=== PATIENT | male | born 1970 | race Caucasian/White ===

== ENCOUNTER 2016-11-04 07:15 | Emergency (ER) | payer OTHER ==
[2016-11-04] MEDS ORDERED: TORADOL IM ONE (07:47)
[2016-11-04] MEDS ORDERED: ZOFRAN IV ONE (07:47)
[2016-11-04] MEDS ORDERED: NS 1,000 ML IV ONE (07:47)
[2016-11-04 07:54] LABS: MANUAL DIFF NEEDED? NO
--- NOTE | 2016-11-04 07:55 | PROVIDER DOCUMENTATION ---
HPI-Chest Pain - General Chief Complaint: Flank Pain Stated Complaint: CP/BACK PAIN Time Seen by Provider: 11/04/16 07:45 Source: patient, EMS Unable to obtain history due to:: urgency Allergies/Adverse Reactions: Patient Allergies Allergy/AdvReac Type Severity Reaction Status Date / Time Iodinated Contrast Media - Allergy Unknown Unknown Verified 11/04/16 07:50 Oral and Home Medications: Home Medication List Medication Instructions Recorded Confirmed Last Taken Type Metformin [Glucophage] 1,500 mg PO QPM 12/30/15 09/08/16 09/08/16 19:00 History Carvedilol 12.5 mg PO BID 09/08/16 09/08/16 09/08/16 19:00 History Clonazepam 0.5 mg PO BID 09/08/16 09/08/16 09/08/16 19:00 History Duloxetine HCl 30 mg PO QAM 09/08/16 09/08/16 09/08/16 19:00 History Omeprazole Magnesium 20 mg PO QAM 09/08/16 09/08/16 09/08/16 08:00 History - History of Present Illness-CP Nature of Presenting Problem: Complains of right sided chest pain over the last 3 days. Is a [facility] patient, and says that he is having problems renewing his xanax at the [facility]. Location: reports: substernal Chest Pain Radiation: reports: arms (substernal chest pain radiating to his right arm) Severity in ED: mild Onset/Duration: 3 days ago Timing: still present, intermittent Context/Activities at Onset: reports: light activity Modifying Factors: improves with: other (ran out of his xanax. he is a [facility] patient) Associated Symptoms: reports: shortness of breath Nitro Today/Relief: no nitro taken today Aspirin Treatment Today: no aspirin today Similar Symptoms Previously?: No Recently Seen Here or By Another Healthcare Provider: No Review of Systems - Adult - REVIEW OF SYSTEMS - ADULT Constitutional: reports: no symptoms reported Eyes: reports: no symptoms reported Ears, Nose, Mouth & Throat: reports: no symptoms reported Cardiovascular: reports: see HPI, chest pain Respiratory: reports: no symptoms reported Gastrointestinal: reports: no symptoms reported, see HPI Genitourinary: reports: no symptoms reported, see HPI Musculoskeletal: reports: no symptoms reported, see HPI Integumentary: reports: no symptoms reported, see HPI Neurological: reports: no symptoms reported, see HPI Psychiatric: reports: see HPI Endocrine: reports: no symptoms reported Hematologic/Lymphatic: reports: no symptoms reported Allergic/Immunologic: reports: no symptoms reported All Other Systems: Reviewed and Negative Past History - Adult - PAST MEDICAL HISTORY-ADULT Review of Records: reports: Old Records Reviewed, Nursing Assessment Review, Medications Reviewed, Social history reviewed & non-contributory. Major Childhood Illnesses: reports: denies history Cardiovascular: reports: HTN Respiratory: reports: denies history Gastrointestinal: reports: denies history Obstetrical/Gynecological: reports: denies history Genitourinary: reports: kidney stones Musculoskeletal: reports: denies history Neurological: reports: denies history Psychiatric: reports: depression, suicide attempt Endocrine/Immune: reports: denies history, Diabetes Other Conditions: reports: denies history - PRIOR SURGERIES/PROCEDURES Surgical/Procedure History: reports: other (kidney removed) - IMMUNIZATION STATUS Childhood Immunizations: See Nurse Assessment Flu Vaccine: See Nurse Assessment - FAMILY HISTORY Family History: reviewed, not pertinent Physical Exam-General - PHYSICAL EXAM-ADULT Initial Vital Signs Reviewed: Yes - CONSTITUTIONAL General Appearance: appears well - EYES Eyes: PERRL/EOMI, pink conjunctivae - HEAD, EARS, NOSE, MOUTH & THROAT HENMT: normocephalic/atraumatic, moist mucous membranes, normal ENT inspection - NECK Neck: non-tender, full range of motion - RESPIRATORY Respiratory: chest non-tender, lungs clear, normal breath sounds - CARDIOVASCULAR Cardiovascular: normal peripheral pulses, regular rate, rhythm, no edema - CHEST (BREASTS) Chest/Breast: deferred - GASTROINTESTINAL (ABDOMEN) Abdominal Exam: normal bowel sounds, non tender - GENITOURINARY Female Genitalia/Pelvic Exam: deferred Male Genitalia: deferred Rectal Exam: deferred - LYMPHATIC Lymphatic: no adenopathy - MUSCULOSKELETAL Back Exam: normal inspection, no CVA tenderness, no vertebral tenderness - SKIN Integumentary: normal color, normal turgor, warm/dry - NEUROLOGIC 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 Awaiting labs/imaging.
[2016-11-04 08:00] LABS: BASO% 0.2 % (0.0-0.8); EOS# 0.07 X1000 (0.0-0.7); EOS% 0.6 % (0.0-10.0); HEMATOCRIT 46.4 % (42.0-52.0); HEMOGLOBIN 15.1 g/dL (14.0-18.0); IMM GRAN# 0.04 X1000 (0.0-0.04); IMM GRAN% 0.3 % (0.0-0.5); LYMPH# 1.55 X1000 (1.2-3.4); LYMPH% 12.6 % (20.5-51.1); MCH 29.3 PG (27-31); MCHC 32.5 g/dL (33-37); MCV 90.1 FL (81-99); MONO# 0.94 X1000 (0.11-0.59); MONO% 7.6 % (1.7-9.3); MPV 10.2 FL (7.4-10.4); NEUT% 78.7 % (42.2-75.2); PLT 320 X1000 (130-400); RBC 5.15 XMIL (4.7-6.1)
[2016-11-04 08:17] LABS: AGAP 14; ALKALINE PHOSPHATASE 130 U/L (32-122); AMYLASE 43 U/L (20-200); BUN 13 mg/dL (8-22); CALCIUM 9.7 mg/dL (8.8-10.2); CHLORIDE 91 mmol/L (98-107); COSMO 270; GOT 28 U/L (10-34); GPT 35 U/L (10-44); LIPASE 27 U/L (13-60); POTASSIUM 4.3 mmol/L (3.5-5.1); SODIUM 130 mmol/L (136-145); TCO2 25 mmol/L (25-35); TOTAL BILIRUBIN 0.49 mg/dL (0.20-1.00); TOTAL PROTEIN 8.6 g/dL (6.3-8.3)
[2016-11-04 08:18] LABS: URINE CULTURE NEEDED? NO; URINE MICRO REVIEW NEEDED? NO; URINE SOURCE CLEAN CATCH
[2016-11-04 08:23] LABS: BILIRUBIN URINE NEGATIVE (NEGATIVE); BLOOD URINE TRACE (NEGATIVE); COLOR YELLOW; GLUCOSE URINE >1000 mg/dL (NEGATIVE); LEUKOCYTES URINE NEGATIVE (NEGATIVE); NITRITE URINE NEGATIVE (NEGATIVE); PH URINE 5.5; PROTEIN URINE 100 mg/dL (NEGATIVE); SP GRAVITY URINE 1.022; TURBIDITY URINE CLEAR (CLEAR); UROBILINOGEN URINE NORMAL (NORMAL)
[2016-11-04 08:24] LABS: UR EPITHELIAL CELLS <10 /HPF (<10); URINE BACTERIA NEGATIVE /HPF; URINE RBC <10 /HPF (<10); URINE WBC <10 /HPF (<10)
--- NOTE | 2016-11-04 08:32 | PROVIDER DOCUMENTATION ---
HPI-Male Problem <Jens Ybarra - Last Filed: 11/04/16 09:30> - General Source: patient Unable to obtain history due to:: urgency - History of Present Illness-Male Location of Complaint: reports: left flank Radiation: reports: left flank Quality of Pain: reports: aching, cramping Severity in ED: reports: moderate Onset/Duration: reports: 2 days ago Timing: reports: still present Context/Activities at Onset: reports: light activity Urinary Symptoms: reports: hesitancy, urgency Sexual intercourse history: reports: Not Active Contraception: reports: none Associated Symptoms: reports: none Associated Symptoms: reports: back/neck pain Similar Symptoms Previously?: Yes Recently seen or treated by another doctor?: Yes <Christian Connolly I - Last Filed: 11/04/16 09:35> - General Chief Complaint: Flank Pain Stated Complaint: CP/BACK PAIN Time Seen by Provider: 11/04/16 07:45 Allergies/Adverse Reactions: Patient Allergies Allergy/AdvReac Type Severity Reaction Status Date / Time Iodinated Contrast Media - Allergy Unknown Unknown Verified 11/04/16 07:50 Oral and Home Medications: Home Medication List Medication Instructions Recorded Confirmed Last Taken Type Metformin [Glucophage] 1,500 mg PO QPM 12/30/15 11/04/16 11/04/16 06:30 History Carvedilol 12.5 mg PO BID 09/08/16 11/04/16 11/04/16 06:30 History Omeprazole Magnesium 20 mg PO QAM 09/08/16 11/04/16 11/04/16 06:30 History Hydrocodone/Acetaminophen [[place] 1 each PO PRN PRN 11/04/16 11/04/16 11/04/16 01 :00 History 5-325 Tablet] - History of Present Illness-Male Nature of Presenting Problem: 46 year old complains of left flank pain. History of staghorn calculus, and left nephrectomy. Denies any other complaints. (Christian Connolly I) Review of Systems - Adult - REVIEW OF SYSTEMS - ADULT Constitutional: reports: no symptoms reported Eyes: reports: no symptoms reported Ears, Nose, Mouth & Throat: reports: no symptoms reported Cardiovascular: reports: no symptoms reported Respiratory: reports: no symptoms reported Gastrointestinal: reports: no symptoms reported Genitourinary: reports: see HPI, dysuria, flank pain Musculoskeletal: reports: no symptoms reported Integumentary: reports: no symptoms reported Neurological: reports: no symptoms reported Psychiatric: reports: no symptoms reported Endocrine: reports: no symptoms reported Hematologic/Lymphatic: reports: no symptoms reported Allergic/Immunologic: reports: no symptoms reported All Other Systems: Reviewed and Negative <Christian Connolly I - Last Filed: 11/04/16 09:35> Past History - Adult - PAST MEDICAL HISTORY-ADULT Review of Records: reports: Old Records Reviewed, Nursing Assessment Review, Medications Reviewed, Social history reviewed & non-contributory. Major Childhood Illnesses: reports: denies history Cardiovascular: reports: HTN Respiratory: reports: denies history Gastrointestinal: reports: denies history Obstetrical/Gynecological: reports: denies history Genitourinary: reports: kidney stones Musculoskeletal: reports: denies history Neurological: reports: denies history Psychiatric: reports: depression, suicide attempt Endocrine/Immune: reports: denies history, Diabetes Other Conditions: reports: denies history - PRIOR SURGERIES/PROCEDURES Surgical/Procedure History: reports: other (kidney removed) - IMMUNIZATION STATUS Childhood Immunizations: See Nurse Assessment Flu Vaccine: See Nurse Assessment - FAMILY HISTORY Family History: reviewed, not pertinent <Christian Connolly I - Last Filed: 11/04/16 09:35> Physical Exam-General - PHYSICAL EXAM-ADULT Initial Vital Signs Reviewed: Yes - CONSTITUTIONAL General Appearance: appears well, mild distress - EYES Eyes: PERRL/EOMI, pink conjunctivae, fundi clear, no AV nicking - HEAD, EARS, NOSE, MOUTH & THROAT HENMT: normocephalic/atraumatic, moist mucous membranes, normal ENT inspection - NECK Neck: full range of motion, supple - RESPIRATORY Respiratory: chest non-tender, lungs clear, normal breath sounds - CARDIOVASCULAR Cardiovascular: normal peripheral pulses, regular rate, rhythm, no edema - CHEST (BREASTS) Chest/Breast: deferred - GASTROINTESTINAL (ABDOMEN) Abdominal Exam: normal bowel sounds - GENITOURINARY Male Genitalia: deferred Rectal Exam: deferred - LYMPHATIC Lymphatic: no adenopathy - MUSCULOSKELETAL Back Exam: normal inspection, no CVA tenderness, no vertebral tenderness Extremity: normal range of motion, non-tender, normal gait - SKIN Integumentary: normal color, normal turgor, warm/dry - NEUROLOGIC 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, grossly normal, no motor/sensory deficits - PSYCHIATRIC Psych/Mental Status: normal mood/affect, normal thought content, normal thought process <Christian Connolly I - Last Filed: 11/04/16 09:35> Progress - CT/MRI 1 CT Study: Renal Stone Impression: Abnormal CT Results: no stones, stable left adrenal myelolipoma, gallstones <Jens Ybarra - Last Filed: 11/04/16 09:30> <Christian Connolly I - Last Filed: 11/04/16 09:35> - PLAN OF CARE/RESULTS Progress/Plan/Lab Results: Vital Signs (72 hours) 11/04/16 07:24 Temperature 97.8 F Pulse Rate 98 H Respiratory 20 Rate Blood Pressure 167/103 O2 Sat by Pulse 100 Oximetry Orders Category Date Time Status Saline Loc DIRECTED Care 11/04/16 07:46 Active NPO Diet 11/04/16 07:46 Active RENAL STONE SEARCH [CT] Stat Exams 11/04/16 07:47 Completed AMYLASE [CHEM] Stat Lab 11/04/16 07:45 Completed CBC WITH ELECTRONIC DIFF [HEME] Stat Lab 11/04/16 07:45 Completed COMPREHENSIVE METABOLIC PANEL [CHEM] Stat Lab 11/04/16 07:45 Completed LIPASE [CHEM] Stat Lab 11/04/16 07:45 Completed URINALYSIS W/POSS RFLX CULT [URINALYSIS] Stat Lab 11/04/16 08:08 Completed 0.9% Sodium Chloride Inj [Ns] 1,000 ml Med 11/04/16 07:47 Discontinued IV 999 mls/hr Ketorolac [Toradol] Med 11/04/16 07:47 Discontinued 30 mg IM NOW ONE Ondansetron [Zofran] Med 11/04/16 07:47 Discontinued 4 mg IV NOW ONE pt will be d/c home f/u with urology, pt was clinically stable, rx given Vital Signs Temp Pulse Resp BP Pulse Ox 11/04/16 07:24 97.8 F 98 H 20 167/103 100 Iodinated Contrast Media - Oral and Allergy (Unknown, Verified 11/04/16 07:50) Unknown PT STATES HE HAS NEVER ACTUALLY HAD IVP DYE BUT SEVERAL MEMBERS OF HIS FAMILY ARE ALLERGIC TO IT SO HE DOESNT TAKE IT Metformin [Glucophage] 1,500 mg PO QPM 12/30/15 Carvedilol 12.5 mg PO BID 09/08/16 Omeprazole Magnesium 20 mg PO QAM 09/08/16 Hydrocodone/Acetaminophen [[place] 5-325 Tablet] 1 each PO PRN PRN 11/04/16 Dietary Diet NPO Start ThuNov 04 0746 I&O 11/03/16 11/04/16 11/05/16 06:59 06:59 06:59 Output Total 75 Balance -75 Laboratory 11/04/16 11/04/16 11/04/16 08:08 07:45 07:45 WBC 12.35 H RBC 5.15 Hgb 15.1 Hct 46.4 MCV 90.1 MCH 29.3 MCHC 32.5 L RDW Std Deviation 13.4 Plt Count 320 MPV 10.2 Immature Gran % (Auto) 0.3 Neut % (Auto) 78.7 H Lymph % (Auto) 12.6 L Chambers % (Auto) 7.6 Eos % (Auto) 0.6 Baso % (Auto) 0.2 Immature Gran # (Auto) 0.04 Neut # (Auto) 9.73 H Lymph # (Auto) 1.55 Chambers # (Auto) 0.94 H Eos # (Auto) 0.07 Baso # (Auto) 0.02 Sodium 130 L Potassium 4.3 Chloride 91 L Carbon Dioxide 25 Anion Gap 14 BUN 13 Creatinine 1.0 Estimated GFR/1.73 m2 > 60 BUN/Creatinine Ratio 13 Glucose 261 H Calculated Osmolality 270 Calcium 9.7 Total Bilirubin 0.49 AST 28 ALT 35 Alkaline Phosphatase 130 H Total Protein 8.6 H Albumin 4.0 Globulin 4.6 Albumin/Globulin Ratio 0.9 Amylase 43 Lipase 27 Urine Source CLEAN CATCH Urine Color YELLOW Urine Turbidity CLEAR Urine pH 5.5 Ur Specific [place] 1.022 Urine Protein 100 A Ur Glucose (Stick) >1000 A Ur Ketones (Stick) TRACE A Urine Blood TRACE A Urine Nitrite NEGATIVE Urine Bilirubin NEGATIVE Urobilinogen Dipstick NORMAL Urine Leukocytes NEGATIVE Urine WBC (Auto) <10 Urine RBC (Auto) <10 U Epithel Cells (Auto) <10 Urine Bacteria (Auto) NEGATIVE (Jens Ybarra) Hemodynamically stable. (Christian Connolly I) Departure - Departure Time of Disposition Order: 09:30 Certified Medical Emergency: Emergent <Jens Ybarra - Last Filed: 11/04/16 09:30> - Departure Time of Disposition Order: 09:34 <Christian Connolly I - Last Filed: 11/04/16 09:35> - Departure DIAGNOSIS: Renal colic Uncontrolled diabetes mellitus Qualifiers: Diabetes mellitus type: other specified (including HARINDER) Diabetes mellitus complication status: with other specified complication Diabetes mellitus oil heaterman insulin use: with fpc use Qualified Code(s): E13.69 - Other specified diabetes mellitus with other specified complication Disposition: HOME 01 Condition: Stable Additional Instructions: f//u with urology Push fluids ED Follow Up Instructions: You have been treated by a care provider in the Emergency Department. These instructions are being provided to you so you can have an understanding of how to care for yourself upon discharge. Upon discharge from the Emergency Department, you are responsible for making arrangements for follow-up care by a physician of your choice. Take all prescribed medications as directed. Return to the Emergency Department immediately for any new or worsening symptoms. You may call the Physician Referral phone number at [phone] to obtain a list of Physicians who are taking new patients. Referrals: Polo Lindsey MD [Primary Care Provider] - Jourdan Pepe DO [STAFF PHYSICIAN] - Call for Appoint. 1-2days Instructions: Renal Colic, [id number] Attestation - Scribe Verification/Attestation Scribe:: Jens Ybarra Acting as Scribe for:: Christian Connolly Scribe documention review:: This chart was documented by a scribe and accurately reflects the service the provider performed and the decisions made by the provider. <Jens Ybarra - Last Filed: 11/04/16 09:30> Physician Attestation - Physician Attestation I, the provider, attest to the following statement:: Christian Connolly Physician documentation Attestation:: This documentation recorded by the scribe accurately reflects the service I personally performed and the decisions made by me. <Jens Ybarra - Last Filed: 11/04/16 09:30>
--- NOTE | 2016-11-04 08:56 | Diag Imaging Result Document ---
PROCEDURE NAME: RENAL STONE SEARCH - 11/04/2016 CT RENAL STONE SEARCH WITHOUT CONTRAST: A dose-reduction protocol was used. COMPARISON: Compared with a with contrast CT abdomen and pelvis of 09/08/2016. FINDINGS: The left kidney is surgically absent. There is no evidence of hydronephrosis or perinephric edema on the right. There is no right renal stone identified. There is a primarily fat density left adrenal lesion which is stable and compatible with myelolipoma. There is fatty infiltration of the liver, similar to the previous exam. There are a few small calcified gallstones at the gallbladder neck area similar to the previous exam. The gallbladder is mildly distended but this is stable. There is no pericholecystic inflammation identified. There is no biliary ductal dilatation identified. The pancreas is unremarkable. There is no evidence of bowel obstruction. The appendix has air in the lumen and does not appear inflamed. There is no free air or abscess identified. There are some degenerative changes of the right L4-5 facet noted. IMPRESSION: 1. Status post left nephrectomy. No evidence of right renal stone or hydronephrosis. 2. Stable left adrenal myelolipoma. Stable fatty infiltration of the liver. 3. Small gallstones in gallbladder neck region. Stable mildly distended gallbladder. No pericholecystic inflammation. 4. No bowel obstruction. Unremarkable appendix.
[2016-11-04 10:28] VITALS: BP 131/92
== END 2016-11-04 10:29 | disposition home or self-care (01) ==
LOC: ED 07:15
DX: N23 Unspecified renal colic (principal); E11.65 Type 2 diabetes mellitus with hyperglycemia; D35.02 Benign neoplasm of left adrenal gland; K76.0 Fatty (change of) liver, not elsewhere classified; K80.80 Other cholelithiasis without obstruction; K82.8 Other specified diseases of gallbladder; R10.9 Unspecified abdominal pain; R39.11 Hesitancy of micturition; Z79.899 Other long term (current) drug therapy; R39.15 Urgency of urination; R30.0 Dysuria; M54.9 Dorsalgia, unspecified; R07.9 Chest pain, unspecified; I10 Essential (primary) hypertension; Z90.5 Acquired absence of kidney; Z87.442 Personal history of urinary calculi
CPT/HCPCS: 74176; 80053; 81001; 82150; 83690; 85025; J1885; J2405; J7030

== ENCOUNTER 2016-11-05 11:00 | Inpatient (IN) | payer OTHER ==
[2016-11-05 12:08] LABS: MANUAL DIFF NEEDED? NO
[2016-11-05 12:18] LABS: URINE CULTURE NEEDED? NO; URINE MICRO REVIEW NEEDED? NO; URINE SOURCE CLEAN CATCH
[2016-11-05 12:21] LABS: BILIRUBIN URINE NEGATIVE (NEGATIVE); BLOOD URINE TRACE (NEGATIVE); COLOR YELLOW; GLUCOSE URINE 1000 mg/dL (NEGATIVE); LEUKOCYTES URINE NEGATIVE (NEGATIVE); NITRITE URINE NEGATIVE (NEGATIVE); PROTEIN URINE 70 mg/dL (NEGATIVE); SP GRAVITY URINE 1.011; TURBIDITY URINE CLEAR (CLEAR); UROBILINOGEN URINE NORMAL (NORMAL)
[2016-11-05 12:22] LABS: UR EPITHELIAL CELLS <10 /HPF (<10); URINE BACTERIA NEGATIVE /HPF; URINE RBC <10 /HPF (<10); URINE WBC <10 /HPF (<10)
[2016-11-05 12:23] LABS: BASO% 0.2 % (0.0-0.8); EOS# 0.05 X1000 (0.0-0.7); EOS% 0.3 % (0.0-10.0); HEMATOCRIT 42.1 % (42.0-52.0); HEMOGLOBIN 13.8 g/dL (14.0-18.0); IMM GRAN# 0.05 X1000 (0.0-0.04); IMM GRAN% 0.3 % (0.0-0.5); LYMPH# 2.03 X1000 (1.2-3.4); LYMPH% 11.8 % (20.5-51.1); MCH 29.9 PG (27-31); MCHC 32.8 g/dL (33-37); MCV 91.1 FL (81-99); MONO# 1.98 X1000 (0.11-0.59); MONO% 11.5 % (1.7-9.3); MPV 10.4 FL (7.4-10.4); NEUT% 75.9 % (42.2-75.2); PLT 305 X1000 (130-400); RBC 4.62 XMIL (4.7-6.1)
[2016-11-05 12:25] LABS: INR 1.08; PROTIME 11.5 Seconds (9.2-11.7); PTT 31.6 Seconds (22.0-36.0)
[2016-11-05 12:31] LABS: AGAP 13; ALBUMIN 3.5 g/dL (3.5-5.0); ALKALINE PHOSPHATASE 89 U/L (32-122); BUN 10 mg/dL (8-22); CALCIUM 8.9 mg/dL (8.8-10.2); CHLORIDE 91 mmol/L (98-107); COSMO 269; GOT 20 U/L (10-34); GPT 27 U/L (10-44); POTASSIUM 4.1 mmol/L (3.5-5.1); SODIUM 131 mmol/L (136-145); TCO2 27 mmol/L (25-35); TOTAL BILIRUBIN 0.96 mg/dL (0.20-1.00)
[2016-11-05] MEDS: DILAUDID IV PRN ×2 (12:52→21:24)
[2016-11-05] MEDS: PROTONIX IV SCH (13:09)
[2016-11-05] MEDS: ZOFRAN IV PRN ×2 (13:09→21:24)
[2016-11-05] MEDS: SODIUM CHLORIDE 0.9% INJ SCH (13:09)
[2016-11-05] MEDS: ZOSYN 3.375 GM/NS 50 ML IV SCH ×2 (13:10→21:30)
[2016-11-05] MEDS: NS 1,000 ML IV SCH (13:10)
--- NOTE | 2016-11-05 13:59 | EKG Report ---
Test Performed on : 11/05/2016 12:27:13 PM Test Reason : abd pain Blood Pressure : / mmHG Vent. Rate : 105 BPM Atrial Rate : 105 BPM P-R Int : 158 ms QRS Dur : 092 ms QT Int : 334 ms P-R-T Axes : 052 005 036 degrees QTc Int : 441 ms Sinus tachycardia. Cannot rule out Anterior infarct , age undetermined Abnormal ECG When compared with ECG of 08-SEP-2016 21:46, Minimal criteria for Anterior infarct are now present Confirmed by Brandon NAZARIO, Ezequiel Lockhart ([id number]) on 11/07/2016 5:19:57 PM
[2016-11-05] MEDS ORDERED: TORADOL IV ONE (14:46)
[2016-11-05 16:38] LABS: ALLEN TEST NO; BE 2.8 mmoll (-3.0-3.0); BLOOD TYPE ARTERIAL; DRAW SITE R BRACHIAL; METHB 0.3 % (0.0-1.5); O2(CT) 17.4 mL/dL (15.0-23.0); PCO2(98.6) 40 mmHg (35-45); PO2(98.6) 67 mmHg (60-100); SAMPLE BLOOD; SAO2 96.9 % (95.0-100.0); THB 13.4 g/dL (11.5-17.4); pH(98.6) 7.44 (7.35-7.45)
[2016-11-05 16:40] LABS: MODALITY ROOM AIR
--- NOTE | 2016-11-05 16:59 | CONSULTATION ---
DATE OF CONSULTATION: 11/05/2016 CHIEF COMPLAINT: Right-sided abdominal and back pain. HISTORY OF PRESENT ILLNESS: This is a 46-year-old, obese male who reports a 2-day history of right-sided abdominal and back pain. He first thought it was like a kidney stone. CT shows some sludge or stones in his gallbladder. It has been associated with some nausea. PAST MEDICAL HISTORY: Pertinent for a left nephrectomy for staghorn calculus, history of some diabetes, suicide attempt, and hypertension. MEDICATIONS: At home include metformin 1500 mg p.o. q.p.m., carvedilol 12.5 mg b.i.d., omeprazole 20 mg daily, and Reed 5. ALLERGIES: Iodinated contrast. FAMILY HISTORY: Noncontributory. SOCIAL HISTORY: He has some attentive family. He is a nonsmoker. REVIEW OF SYSTEMS: As noted above. PHYSICAL EXAMINATION: Vital Signs: His temperature is 100.1 degrees, heart rate 109, respiratory rate 20, blood pressure 142/92. Neck: No cervical adenopathy. Lungs: Bilateral breath sounds. Heart: Regular rate rhythm. Abdomen: He is obese. He has some stretch ortiz on his abdomen. He seems to be tender in the right upper quadrant. Extremities: No peripheral edema is present. Neurologic: He is awake and alert. LABORATORY: His white count is 17,000, up from 12,000. His LFTs are normal. CT scan by report shows some sludge or stones in his gallbladder. ASSESSMENT: He is scheduled for a HIDA scan this evening which should prove if his cystic duct is obstructed. If in fact it is obstructed then that would be consistent with acute cholecystitis and he would benefit from a cholecystectomy. I agree with his antibiotic coverage. We will evaluate him again after the HIDA scan. Thanks for the opportunity to see him.
[2016-11-05] MEDS ORDERED: FLUZONE QUAD 2016-2017 SYRINGE IM ONE (17:51)
[2016-11-05] MEDS: HUMALOG SUBQ SCH ×2 (17:52→21:20)
--- NOTE | 2016-11-05 18:54 | HISTORY AND PHYSICAL ---
CHIEF COMPLAINT: Abdominal pain, nausea, vomiting. HISTORY OF PRESENT ILLNESS: Mr. Dimas is a 46-year-old, white gentleman, known case of hypertension, hyperlipidemia, diabetes mellitus, morbid obesity. Had nephrectomy for staghorn calculus on the left side. Not doing well the last 3 days. The patient had pain in the abdomen, more so right upper quadrant flank area, right shoulder blade and shoulder area. The patient took 2 [place] which he had it from previous prescription day before yesterday which did not help his pain. The patient came to the emergency room yesterday. Evaluated by ER physician. The patient had workup done in the ER. His leukocytosis count was minimally elevated. The patient had CT scan of the abdomen and pelvis done which revealed small gallstone in the gallbladder neck region. Stable mildly distended gallbladder. No pericholecystic inflammation. No bowel obstruction. Unremarkable appendix. Patient was given some IV pain medicine, he felt better, the patient was discharged home. After going home, patient continued to have pain which was moderate to severe. The patient vomited 3-4 times. He had fever and chills. The patient was not getting any better. According to mother and patient he was getting more sick. He came to my office for evaluation. The patient had significant tenderness in the right upper quadrant. I was concerned about acute cholecystitis. The patient also has underlying diabetes which is uncontrolled. The patient was getting weaker and I decided to admit the patient for further care. The patient's pain was diffuse right upper quadrant diffuse abdominal pain, pain in the back, shoulder blade area, right shoulder. He denied any dysuria or hematuria. The patient had some diarrhea but no blood or mucus in the stool. No hematemesis. No unusual cough, expectoration, or hemoptysis. Denied any headache. The patient was feeling weak. No typical chest pain, palpitation, orthopnea or PND. The patient was on diet for his uncontrolled diabetes. The patient was refusing insulin. No further history available at this time. ALLERGIES: Iodinated contrast media. PAST MEDICAL HISTORY: Left nephrectomy, diabetes mellitus poorly controlled, hypertension, hyperlipidemia, kidney stone, morbid obesity, sleep apnea, hypogonadism, gastroesophageal reflux disease, status post left nephrectomy. FAMILY HISTORY: Mother with breast cancer, hypertension, hyperlipidemia, NIDDM, mood disorder. Otherwise family history is noncontributory. REVIEW OF SYSTEMS: As per HPI. HOME MEDICATION: Includes Coreg, [place], Glucophage, Prilosec. The patient was on medication for mood disorder, which he stopped taking it. PHYSICAL EXAMINATION: GENERAL: Young, white gentleman morbidly obese in moderate distress due to the pain. VITAL SIGNS: Blood pressure 130/78, pulse 105, respiration 18, temperature 99.2 degrees. SKIN: Normal turgor. No rash or petechiae. HEENT: Head atraumatic, normocephalic. Stewart conjunctivae. Anicteric sclerae. Extraocular muscle movement normal. Fundus sharp discs. Ears and nose benign. NECK: Supple. No JVD, thyromegaly or lymphadenopathy. CHEST: Bilateral good air entry present. Few basal crepitations. No rales. CARDIOVASCULAR: S1 and S2 heard. No gallop or thrill. ABDOMEN: Soft, globular. Bowel sounds present. Significant tenderness right upper quadrant. No guarding or rigidity. Mild diffuse tenderness. No organomegaly or mass. EXTREMITIES: No cyanosis, clubbing. No acute DVT. Patient does have a possible DVT. INTERIOR MECHANIC: Alert, awake, oriented x3. No focalities. LABORATORY DATA: WBC count 17.17, hemoglobin 13.8, hematocrit 42.1, platelet count 305,000. PT/INR 1.08. PTT was 31.6. Blood gas, pH 7.44, pCO2 was 40, PO2 67. This was done on FiO2 of 21%. Sodium was 131, potassium 4.1, chloride 91. BUN was 10. Blood sugar 237. Urinalysis clean- catch was benign. The patient's EKG done today did reveal sinus tachycardia, anteroseptal wall myocardial infarction possible, age undetermined. No acute ST-T wave changes. CONSIDERATION: Patient admitted with abdominal pain, significant tenderness right upper quadrant. There was question about gallstone. First consideration acute cholecystitis. Other consideration includes gastritis, hepatitis. Plan is to admit the patient. His CT scan done yesterday results reviewed. I am going to get HIDA scan. Meanwhile, will do septic workup. Start the patient on IV antibiotics and close observation. Treat his pain and nausea with symptomatically. We will get a surgical consult. Overall plan discussed with the patient and mother and they are in agreement. His other problem includes uncontrolled diabetes mellitus. We will hydrate the patient. Sliding scale insulin. Hypertension, hyperlipidemia, gastritis and reflux disease. Overall plan discussed with the patient and family and they are in agreement.
[2016-11-06] MEDS: ZOSYN 3.375 GM/NS 50 ML IV SCH ×4 (01:35→17:34)
[2016-11-06] MEDS: DILAUDID IV PRN ×4 (03:49→22:10)
[2016-11-06] MEDS: ZOFRAN IV PRN ×3 (03:50→17:41)
[2016-11-06] MEDS: NS 1,000 ML IV SCH (05:33)
[2016-11-06] MEDS: HUMALOG SUBQ SCH ×4 (06:11→22:10)
--- NOTE | 2016-11-06 06:22 | PROGRESS NOTE ---
DATE: 11/06/2016 SUBJECTIVELY: Mr. Dimas is doing fair. He still has some abdominal pain and nausea. The patient had fever up to 100.1. He did not vomit. The patient had a HIDA scan done. I am waiting for official report. No typical chest pain. Patient admitted with abdominal pain, nausea. He did have some vomiting at home. The patient does have uncontrolled diabetes. OBJECTIVE: Vital Signs: His vital signs are noted. Neck: Supple. No JVD. Lungs: Few basal crepitations. Heart: S1 and S2 heard. Abdomen: Soft, globular, obese. The patient still has tenderness in the right upper quadrant though it is minimally less. No guarding or rigidity. Extremities: No cyanosis, clubbing. No acute DVT. PARTY HOST: Alert, awake. Able to move all 4 limbs. CONSIDERATION: 1. Right upper quadrant pain. Most likely, acute cholecystitis. The patient had HIDA scan done. Official result is pending. 2. Uncontrolled diabetes mellitus. 3. Morbid obesity. 4. Mood disorder. I encouraged him to do incentive spirometry. Risk of surgery, anesthesia, postoperative complication discussed with the patient. The patient is on IV antibiotics, IV hydration. Appreciate Dr. Gonzalez's help managing patient.
--- NOTE | 2016-11-06 06:48 | Diag Imaging Result Document ---
PROCEDURE NAME: HIDA SCAN W/O EJECT. FRACTION - 11/05/2016 HIDA SCAN: TECHNIQUE: 5.3 mCi Choletec administered. Imaging for 60 minutes performed. FINDINGS: There is normal uptake of radiopharmaceutical within the liver. There is quick emptying into the small bowel. I believe there is reflux into the stomach. The gallbladder does not fill through 60 minutes. IMPRESSION: Abnormal exam with no filling of the gallbladder through 60 minutes.
[2016-11-06 07:23] LABS: MANUAL DIFF NEEDED? NO
[2016-11-06 07:27] LABS: BASO% 0.1 % (0.0-0.8); EOS# 0.11 X1000 (0.0-0.7); EOS% 0.7 % (0.0-10.0); HEMATOCRIT 39.2 % (42.0-52.0); HEMOGLOBIN 12.7 g/dL (14.0-18.0); IMM GRAN# 0.05 X1000 (0.0-0.04); IMM GRAN% 0.3 % (0.0-0.5); LYMPH# 1.87 X1000 (1.2-3.4); LYMPH% 11.2 % (20.5-51.1); MCHC 32.4 g/dL (33-37); MCV 92.7 FL (81-99); MONO# 1.69 X1000 (0.11-0.59); MONO% 10.1 % (1.7-9.3); NEUT% 77.6 % (42.2-75.2); PLT 277 X1000 (130-400); RBC 4.23 XMIL (4.7-6.1)
[2016-11-06 07:41] LABS: ALBUMIN 2.9 g/dL (3.5-5.0); CALCIUM 8.3 mg/dL (8.8-10.2); MAGNESIUM 1.4 mg/dL (1.5-2.7); POTASSIUM 3.7 mmol/L (3.5-5.1); TOTAL BILIRUBIN 0.67 mg/dL (0.20-1.00); TOTAL PROTEIN 7.5 g/dL (6.3-8.3)
[2016-11-06] MEDS ORDERED: LR 1,000 ML ONE ×2 (11:22→13:47)
[2016-11-06] MEDS ORDERED: MARCAINE 0.25% PF/EPI 1:200,000 ONE (11:22)
[2016-11-06] MEDS ORDERED: SODIUM CHLORIDE 0.9% ONE (11:22)
--- NOTE | 2016-11-06 13:17 | Diag Imaging Result Document ---
PROCEDURE NAME: OPERATIVE CHOLANGIOGRAM - 11/06/2016 INTRAOPERATIVE CHOLANGIOGRAM, 3 VIEWS: FINDINGS: There is contrast in the duodenum. There is a linear filling defect in the distal common bile duct which is probably due to a muscular contraction. There is no evidence of retained stones otherwise. IMPRESSION: No retained stones.
[2016-11-06] MEDS ORDERED: DIPRIVAN 1% ONE (13:33)
--- NOTE | 2016-11-06 13:37 | OPERATIVE NOTE ---
PROCEDURE DATE: 11/06/2016 DATE OF SURGERY: 11/06/2016. PROCEDURE: Laparoscopic cholecystectomy with operative cholangiogram. SURGEON: Joseluis Gonzalez MD. ASSISTANTS: Amaya Mackenzie and Andrews. PREOPERATIVE DIAGNOSIS: Acute cholecystitis. POSTOPERATIVE DIAGNOSIS: Acute and chronic cholecystitis. FINDINGS: The cholangiogram revealed a long cystic duct, but normal size. No intraluminal filling defects. There was free flow in the duodenum. DESCRIPTION OF PROCEDURE: Satisfactory general endotracheal anesthesia was achieved, and the abdomen was prepped and draped in a sterile fashion. We anesthetized the skin above the umbilicus, made an incision, carried our incision down to the fascia. We scored the fascia near the abdominal cavity with Optiview technique. We insufflated through this trocar. Under direct visualization, we introduced an 11 trocar in the midepigastrium. We then introduced a 5 trocar in the midclavicular line, and a 5 trocar near the anterior axillary line. We switched the videolaparoscope to the midepigastric trocar. We identified some adhesions to the anterior abdominal wall which we took down with a grasper, and that gave us free access from the umbilical trocar site into the right upper quadrant. We then placed the patient in reverse Trendelenburg and turned him to the left. The gallbladder was distended, thick-walled and inflamed. We had to sweep the omentum off the fundus. After doing so, we used a large aspirating needle to decompress it. We then used a ratcheted grasper to grasp the fundus and reflect it cephalad. Then again swept the omentum off the fundus into the infundibulum. We then used a bulldog in order to grasp the infundibulum. We then bluntly dissected the triangle, identified what appeared to be the cystic duct. We incised it and then put a Vidal catheter in and shot the cholangiogram. The findings above were noted. We removed the cholangiogram catheter, used a long clipper to clip the cystic duct on the opposite side of cystic ductotomy, and 1 on the proximal side as well. We then divided the cystic duct. We then further dissected the triangle, identified what appeared to be a cystic artery. We clipped it proximally x2 and then divided it with the cautery spatula distally. We then stayed right on the surface of the gallbladder using the cautery spatula to dissect the gallbladder out of the liver bed. We used the electrocautery as well as some blunt dissection with a spatula to dissect the gallbladder up away from the liver bed. We then came to the fundus and the liver of the gallbladder completely. We changed the videolaparoscope to the midepigastric trocar, introduced an EndoCatch, placed the gallbladder within the bag and delivered it through the umbilical trocar site. We had to enlarge the incision to fashion it in order to deliver the gallbladder because it was so enlarged and inflamed. We looked back and irrigated, aspirated, removed all the blood. Did not see any bile leak, but we placed a Baljinder drain into the subhepatic space, bringing it out the mid axillary line trocar site. We put it in the subhepatic space for adequate drainage. We then desufflated, removed our other trocars. We closed the fascia at the umbilicus under direct visualization with 2-0 Polysorb fascial stitches, and also placed 2-0 Polysorb fascial stitch in the epigastrium as well. We then closed the skin at each incision with 4-0 Polysorb subcuticular stitches. A 3-0 nylon was used to secure the drain at the skin level. Sterile OpSite's were applied at the other incisions. He tolerated it well, was sent to the recovery room in satisfactory condition.
[2016-11-06 13:41] LABS: ALLEN TEST YES; BE -2.2 mmoll (-3.0-3.0); BLOOD TYPE ARTERIAL; DRAW SITE R RADIAL; METHB 1.4 % (0.0-1.5); O2(CT) 16.3 mL/dL (15.0-23.0); PCO2(98.6) 41 mmHg (35-45); PO2(98.6) 68 mmHg (60-100); SAMPLE BLOOD; SAO2 95.2 % (95.0-100.0); THB 12.7 g/dL (11.5-17.4); pH(98.6) 7.36 (7.35-7.45)
[2016-11-06 13:43] LABS: MODALITY CANNULA
[2016-11-06] MEDS ORDERED: EXTENSION SET 32 IN 4522 ONE (13:47)
[2016-11-06] MEDS ORDERED: ZOFRAN ONE (13:47)
[2016-11-06] MEDS ORDERED: XYLOCAINE-MPF 2% ONE (13:47)
[2016-11-06] MEDS ORDERED: NORCURON ONE (13:47)
[2016-11-06] MEDS ORDERED: QUELICIN (DOSE) ONE (13:47)
[2016-11-06] MEDS ORDERED: ROBINUL ONE (13:47)
[2016-11-06] MEDS ORDERED: NEOSTIGMINE ONE (13:47)
[2016-11-06] MEDS ORDERED: ANESTHESIA PB SET 88 IN 5742 ONE (13:47)
[2016-11-06] MEDS: DILAUDID ONE ×2 (14:20→14:25)
--- NOTE | 2016-11-06 14:20 | Diag Imaging Result Document ---
PROCEDURE NAME: CHEST-PORTABLE - 11/06/2016 AP PORTABLE CHEST AT 1340 HOURS: FINDINGS: The inspiration is markedly suboptimal. There may be atelectasis in the right middle lobe. IMPRESSION: Poor inspiration.
[2016-11-06] MEDS: PROTONIX IV SCH (17:35)
[2016-11-07] MEDS: DILAUDID IV PRN ×5 (02:53→16:10)
[2016-11-07] MEDS: ZOFRAN IV PRN ×3 (02:53→16:11)
[2016-11-07] MEDS: ZOSYN 3.375 GM/NS 50 ML IV SCH ×4 (04:24→21:53)
[2016-11-07] MEDS: NS 1,000 ML IV SCH ×3 (04:25→14:04)
[2016-11-07] MEDS: HUMALOG SUBQ SCH ×4 (06:39→21:54)
--- NOTE | 2016-11-07 06:56 | PROGRESS NOTE ---
DATE: 11/07/2016 SUBJECTIVE: Mr. Dimas is status post cholecystectomy for acute cholecystitis. Today is postop day 1. The patient tolerated procedure well. The patient did have significant bloody drainage in the TANJA drain and there was some extravasation of blood. The patient did have some problems urinating. No high-grade fever or chills. The patient does have mild cough. No expectoration. No vomiting. No typical chest pain. OBJECTIVE: Vital Signs: His vital signs are noted. Patient is afebrile. At times, tachycardic. Neck: Supple. No JVD. Lungs: Bilateral good air entry present. CVS: S1 and S2 heard. Abdomen: Soft, globular. Mild distention. Soreness. Extremities: No cyanosis, clubbing. No acute DVT. There was bloody drainage in the TANJA drain. STOREKEEPER ENGINEERING: Alert, awake. Able to move all 4 limbs. CONSIDERATION: 1. Acute cholecystitis, status post cholecystectomy. 2. Diabetes mellitus on sliding scale insulin. 3. History of hypertension. 4. Morbid obesity. 5. Gastritis. 6. Mood disorder. PLAN: We will continue current treatment. I am going to repeat blood work today. Close observation. Encourage incentive spirometry. Overall plan discussed with the patient. He is in agreement. The patient is on oxygen. He had history of sleep apnea. Not using CPAP and did not go for followup.
[2016-11-07 07:10] LABS: MANUAL DIFF NEEDED? NO
[2016-11-07 07:27] LABS: BASO% 0.1 % (0.0-0.8); EOS# 0.02 X1000 (0.0-0.7); EOS% 0.1 % (0.0-10.0); HEMATOCRIT 31.1 % (42.0-52.0); IMM GRAN# 0.04 X1000 (0.0-0.04); IMM GRAN% 0.3 % (0.0-0.5); LYMPH# 1.88 X1000 (1.2-3.4); LYMPH% 13.4 % (20.5-51.1); MCHC 32.2 g/dL (33-37); MCV 93.4 FL (81-99); MONO# 1.68 X1000 (0.11-0.59); MPV 9.7 FL (7.4-10.4); NEUT% 74.1 % (42.2-75.2); PLT 288 X1000 (130-400); RBC 3.33 XMIL (4.7-6.1)
[2016-11-07 07:41] LABS: ALBUMIN 2.7 g/dL (3.5-5.0); CALCIUM 7.5 mg/dL (8.8-10.2); MAGNESIUM 1.4 mg/dL (1.5-2.7); POTASSIUM 4.2 mmol/L (3.5-5.1); TOTAL BILIRUBIN 0.56 mg/dL (0.20-1.00); TOTAL PROTEIN 6.8 g/dL (6.3-8.3)
[2016-11-07] MEDS: COREG PO SCH ×2 (09:31→21:53)
[2016-11-07] MEDS: PROTONIX IV SCH (11:50)
[2016-11-07] MEDS: SODIUM CHLORIDE 0.9% INJ SCH (11:50)
[2016-11-08] MEDS: NS 1,000 ML IV SCH ×2 (01:33→20:57)
[2016-11-08] MEDS: DILAUDID IV PRN ×2 (01:33→05:43)
[2016-11-08] MEDS: ZOSYN 3.375 GM/NS 50 ML IV SCH ×4 (04:01→21:30)
[2016-11-08] MEDS: HUMALOG SUBQ SCH ×4 (06:13→20:58)
[2016-11-08 06:33] LABS: MANUAL DIFF NEEDED? NO
[2016-11-08 06:53] LABS: BASO% 0.2 % (0.0-0.8); EOS# 0.22 X1000 (0.0-0.7); EOS% 2.2 % (0.0-10.0); HEMOGLOBIN 8.8 g/dL (14.0-18.0); IMM GRAN# 0.03 X1000 (0.0-0.04); IMM GRAN% 0.3 % (0.0-0.5); LYMPH# 1.88 X1000 (1.2-3.4); LYMPH% 18.8 % (20.5-51.1); MCH 29.6 PG (27-31); MCHC 31.4 g/dL (33-37); MCV 94.3 FL (81-99); MONO# 0.88 X1000 (0.11-0.59); MONO% 8.8 % (1.7-9.3); MPV 9.9 FL (7.4-10.4); NEUT% 69.7 % (42.2-75.2); PLT 286 X1000 (130-400); RBC 2.97 XMIL (4.7-6.1)
[2016-11-08 06:55] LABS: ALBUMIN 2.6 g/dL (3.5-5.0); CALCIUM 7.5 mg/dL (8.8-10.2); MAGNESIUM 1.6 mg/dL (1.5-2.7); POTASSIUM 3.5 mmol/L (3.5-5.1); TOTAL BILIRUBIN 0.31 mg/dL (0.20-1.00); TOTAL PROTEIN 6.4 g/dL (6.3-8.3)
[2016-11-08] MEDS: COREG PO SCH ×2 (09:57→20:58)
--- NOTE | 2016-11-08 10:00 | PROGRESS NOTE ---
DATE: 11/08/2016 SUBJECTIVE: Mr. Dimas is feeling better. He denied any high-grade fever or chills. He does have some soreness in the abdomen and right upper quadrant. The patient does have some bloody drainage from the TANJA drain, and he does have some drainage around the drainage tube when he gets up. Patient feels hungry. No diarrhea. No typical chest pain. Today is postop day 2 for his laparoscopic cholecystectomy. No hypoglycemic episode. Mild cough. No expectoration. OBJECTIVE: Vital Signs: Noted. Neck: Supple. No JVD. Lungs: Bilateral good air entry present. Occasional wheezing. CVS: S1 and S2 heard. Abdomen: Soft, globular. Bowel sounds present. Diffuse abdominal tenderness, more so in the right upper quadrant. Extremities: No cyanosis, clubbing. No acute DVT. SYSTEM SOFTWARE DEVELOPER: Alert, awake able to move all 4 limbs. LAB DATA: His lab data revealed hemoglobin 8.8, hematocrit 28, WBC count 9.98, which is improving. The patient did have drop in hemoglobin and hematocrit. We will continue monitoring. Potassium 3.5, sodium 134, BUN 13 creatinine 1.4. The patient does have only 1 kidney. PATIENT'S PROBLEM LIST: 1. Acute cholecystitis, status post cholecystectomy. 2. Acute blood loss anemia, most likely postoperative. 3. Diabetes mellitus on sliding scale insulin. 4. History of hypertension. Blood pressure doing well without medication. 5. Mood disorder. 6. Gastritis and reflux disease. I am going to advance his diet. 7. Ambulation. Continue intravenous antibiotics. Surgeon following patient with us.
--- NOTE | 2016-11-08 11:43 | PROGRESS NOTE ---
DATE: 11/08/2016 SUBJECTIVE: Mr. Dimas is a 46-year-old white male who underwent a laparoscopic cholecystectomy per Dr. Gonzalez on 11/06/2016. He is now postop day 2. OBJECTIVE: General: He is awake. Still has abdominal distention. His trocar sites are intact. He has a drainage tube in place that has had some bloody drainage. Vital Signs: He is afebrile. His heart rate is 96, blood pressure 116/70, O2 saturation 96%. Lungs: He has no work of breathing. Genitourinary: He is voiding without a Thomas. His urine output is adequate; 800 mL the last shift. He is on IV Zosyn. LABORATORIES: His white blood cell count is normal. His hematocrit is 28%. BUN and creatinine are 13 and 1.4. PLAN: He is on a diabetic soft diet. We will leave his TANJA drain in place today. We will try to increase his activity.
[2016-11-08] MEDS: PROTONIX IV SCH (12:10)
[2016-11-08] MEDS: SODIUM CHLORIDE 0.9% INJ SCH (12:10)
[2016-11-08] MEDS: ADVAIR 250/50 DISKUS INH SCH (19:35)
[2016-11-08] MEDS: GLUCOPHAGE XR PO SCH (20:58)
[2016-11-09] MEDS: ZOSYN 3.375 GM/NS 50 ML IV SCH ×2 (05:41→11:07)
[2016-11-09] MEDS: NS 1,000 ML IV SCH (06:15)
[2016-11-09] MEDS: HUMALOG SUBQ SCH ×4 (06:15→22:03)
[2016-11-09 06:32] LABS: MANUAL DIFF NEEDED? NO
[2016-11-09 06:38] LABS: BASO% 0.4 % (0.0-0.8); EOS# 0.22 X1000 (0.0-0.7); HEMATOCRIT 28.2 % (42.0-52.0); HEMOGLOBIN 8.9 g/dL (14.0-18.0); IMM GRAN# 0.02 X1000 (0.0-0.04); IMM GRAN% 0.3 % (0.0-0.5); LYMPH# 1.85 X1000 (1.2-3.4); LYMPH% 24.9 % (20.5-51.1); MCH 29.9 PG (27-31); MCHC 31.6 g/dL (33-37); MCV 94.6 FL (81-99); MONO# 0.65 X1000 (0.11-0.59); MONO% 8.8 % (1.7-9.3); NEUT% 62.6 % (42.2-75.2); PLT 277 X1000 (130-400); RBC 2.98 XMIL (4.7-6.1)
[2016-11-09 06:58] LABS: AGAP 12; ALBUMIN 2.6 g/dL (3.5-5.0); ALKALINE PHOSPHATASE 70 U/L (32-122); BUN 11 mg/dL (8-22); CALCIUM 8.2 mg/dL (8.8-10.2); CHLORIDE 103 mmol/L (98-107); COSMO 284; GOT 12 U/L (10-34); GPT 20 U/L (10-44); POTASSIUM 3.7 mmol/L (3.5-5.1); SODIUM 141 mmol/L (136-145); TCO2 26 mmol/L (25-35); TOTAL BILIRUBIN 0.23 mg/dL (0.20-1.00); TOTAL PROTEIN 6.7 g/dL (6.3-8.3)
[2016-11-09] MEDS: ADVAIR 250/50 DISKUS INH SCH ×2 (07:56→20:17)
--- NOTE | 2016-11-09 09:48 | PROGRESS NOTE ---
DATE: 11/09/2016 SUBJECTIVE: Mr. Pedraza is doing better. The patient did have 2-3 bowel movements yesterday. His hemoglobin and hematocrit are stable this morning. The patient still has a TANJA drain. He was tolerating food well. No high-grade fever or chills. No nausea or vomiting. Complaining of problems sleeping at night. OBJECTIVE: Vital Signs: Vital signs reviewed. Neck: Supple. No JVD. Lungs: Bibasilar crepitations. Heart: S1 and S2 heard. Abdomen: Soft. Tenderness right upper quadrant, epigastrium. Extremities: No cyanosis, clubbing. No acute DVT. OPTICAL MANAGER: Alert, awake, oriented x3. CONSIDERATIONS: 1. Status post cholecystectomy for acute cholecystitis. 2. Noninsulin-dependent diabetes mellitus. 3. Hypertension. Blood pressure doing well. 4. Insomnia. PLAN: Will try Klonopin. I am going to stop IV fluid. Continue IV antibiotics. Ambulate the patient in room and hallway. Once it is okay with surgeon we will plan discharging patient home. Overall plan discussed with the patient and he is in agreement.
[2016-11-09] MEDS: COREG PO SCH ×2 (11:06→20:38)
[2016-11-09] MEDS: ICAR-C PO SCH (11:13)
[2016-11-09] MEDS ORDERED: NORCO-7.5 PO PRN (11:33)
--- NOTE | 2016-11-09 14:09 | PROGRESS NOTE ---
DATE: 11/09/2016 Mr. Dimas is status post laparoscopic cholecystectomy. He is now postop day 3. This was performed by Dr. Gonzalez. Drain was left at the time of surgery. I removed his drain today. His white blood cell counts been normal the last 2 days. His hematocrit is 28%. All trocar sites seem to be healing well. His abdomen is mostly soft. It is not tender. He is on a diabetic diet. He has been on IV Zosyn but he has lost his IV and so will change his medication to p.o. I think that he is getting close to discharge.
[2016-11-09] MEDS: GLUCOPHAGE XR PO SCH (20:38)
[2016-11-09] MEDS ORDERED: KLONOPIN PO SCH (21:00)
[2016-11-10 05:27] VITALS: BP 134/79
[2016-11-10] MEDS: HUMALOG SUBQ SCH (06:44)
--- NOTE | 2016-11-10 07:06 | PROGRESS NOTE ---
DATE: 11/10/2016 SUBJECTIVE: Mr. Dimas is doing better. Tolerating food well. No nausea or vomiting. Some soreness at the surgery site. No high-grade fever or chills. Ambulating well. OBJECTIVE: Vital Signs: Reviewed. Neck: Supple. No JVD. Lungs: Bibasilar crepitations. Heart: S1 and S2 heard. Abdomen: Soft, globular. Bowel sounds present. Minimal soreness at the surgery site. Extremities: No cyanosis or clubbing. No acute DVT. Central Nervous System: Alert, awake, able to move all 4 limbs. DIAGNOSTIC DATA: The patient's lab data noted. PLAN: The patient is scheduled to have a CBC done today. I am going to review that result. Continue the rest of the treatment. The patient is eager to go home. I will let Dr. Gonzalez evaluate the patient. If okay with him, we will discharge the patient home. Follow up with me in 1 week. He will resume his home medicine. Monitor Accu-Chek. Follow up with me in 7 days. In case of more distress, call us back or go to the emergency room. Follow up with Dr. Gonzalez as scheduled.
[2016-11-10 07:23] LABS: MANUAL DIFF NEEDED? NO
[2016-11-10 07:31] LABS: BASO% 0.4 % (0.0-0.8); EOS% 2.5 % (0.0-10.0); HEMATOCRIT 28.5 % (42.0-52.0); HEMOGLOBIN 8.9 g/dL (14.0-18.0); IMM GRAN# 0.05 X1000 (0.0-0.04); IMM GRAN% 0.6 % (0.0-0.5); LYMPH# 1.85 X1000 (1.2-3.4); MCH 29.6 PG (27-31); MCHC 31.2 g/dL (33-37); MCV 94.7 FL (81-99); MONO# 0.77 X1000 (0.11-0.59); MONO% 9.6 % (1.7-9.3); MPV 10.1 FL (7.4-10.4); NEUT% 63.9 % (42.2-75.2); PLT 325 X1000 (130-400); RBC 3.01 XMIL (4.7-6.1)
[2016-11-10] MEDS: COREG PO SCH (08:24)
[2016-11-10] MEDS: ICAR-C PO SCH (08:24)
[2016-11-10] MEDS: ADVAIR 250/50 DISKUS INH SCH (08:31)
--- NOTE | 2016-11-11 15:59 | DISCHARGE SUMMARY ---
ADMISSION DATE: 11/05/2016 DISCHARGE DATE: 11/10/2016 FINAL DISCHARGE DIAGNOSES: 1. Acute cholecystitis . 2. Hypertension. 3. Uncontrolled diabetes mellitus. 4. Gastritis. 5. Mood disorder. 6. Hyperlipidemia. 7. Acute blood loss anemia. HOSPITAL COURSE: Mr. Dimas is a 46-year-old, white gentleman admitted with abdominal pain, nausea, vomiting, fever, chills. The patient went to the emergency room and had CT scan done. The patient was given some pain medicine. Initial CT scan revealed status post left nephrectomy, small gallstone in the gallbladder neck region, stable mildly distended gallbladder, no pericholecystic inflammation. The patient was discharged home. The patient came back with persistent pain, fever, chills, nausea and vomiting. I evaluated patient in the office. He did have significant tenderness in the right upper quadrant and epigastrium. I decided to admit the patient for further care. We did HIDA scan which was abnormal with no filling of gallbladder through 60 minutes. Surgical consult obtained with Dr. Gonzalez, who did laparoscopic cholecystectomy. The patient did have some postoperative bleeding in the TANJA drain. His hemoglobin and hematocrit remained stable. TANJA drain was removed. According to surgeon, the patient is stable to be discharged. Patient was eager to go home. He remained afebrile. WBC count was normal. He was tolerating food well. I discharged him home on November 10. Advised patient to monitor blood pressure Accu-Chek at home. The patient claims he is not ready to take insulin yet, but I gave him Augmentin and pain medicine. Discussed side effects and precaution. Follow up with me in a week. Follow up with surgeon as scheduled. LAB DATA: Revealed last hemoglobin 8.9, hematocrit 28.5, WBC count 8.6, platelet count 325. Admission WBC count was 16.72. Admission hemoglobin was 12.7. Electrolytes: Sodium 141, potassium 3.7. BUN 11, creatinine 1.2. The patient does have only 1 kidney. He had left nephrectomy. Blood culture was no growth. IMAGING: Chest x-ray results reviewed; it did show poor inspiration. Operative cholangiogram: No retained stone. CONDITION: Overall discharge condition satisfactory. DISCHARGE PLAN: Discussed at length with the patient, and he is in agreement.
== END 2016-11-10 08:50 | disposition home or self-care (01) | DRG 418 ==
LOC: EDIPHOLD 11:30 → 3N 12:44
PROVIDERS: ADMIT Internal Medicine; ATTEND Internal Medicine
PROC: BF101ZZ Fluoroscopy of Bile Ducts using Low Osmolar Contrast (ICD-10-PCS; 2016-11-06)
PROC: 0FT44ZZ Resection of Gallbladder, Percutaneous Endoscopic Approach (ICD-10-PCS; principal; 2016-11-06 11:35)
DX: K81.2 Acute cholecystitis with chronic cholecystitis (principal); D62 Acute posthemorrhagic anemia; E11.65 Type 2 diabetes mellitus with hyperglycemia; I10 Essential (primary) hypertension; E78.5 Hyperlipidemia, unspecified; K29.70 Gastritis, unspecified, without bleeding; K21.9 Gastro-esophageal reflux disease without esophagitis; G47.30 Sleep apnea, unspecified; F39 Unspecified mood [affective] disorder; E66.01 Morbid (severe) obesity due to excess calories; Z90.5 Acquired absence of kidney; Z80.3 Family history of malignant neoplasm of breast; Z82.49 Family history of ischemic heart disease and other diseases of the circulatory system
CPT/HCPCS: 71010; 74176; 74300; 78226; 80053; 81001; 82150; 82805; 82948; 83690; 83735; 84100; 85025; 85610; 85730; 87040; 88304; 93005; 93010; 94761; 94762; 96372; 96374; A9537; C9113; J0330; J1170; J1815; J1885; J2405; J2543; J7030; J7120; Q9966; 94640-76; J2710; S0164

== ENCOUNTER 2017-04-20 14:29 | Observation (INO) ==
[2017-04-20] MEDS ORDERED: D50W SYRINGE IV PRN (16:23)
[2017-04-20 17:00] LABS: ALLEN TEST YES; BE -0.9 mmoll (-3.0-3.0); BLOOD TYPE ARTERIAL; DRAW SITE R RADIAL; METHB 0.9 % (0.0-1.5); O2(CT) 20.1 mL/dL (15.0-23.0); PCO2(98.6) 41 mmHg (35-45); PO2(98.6) 79 mmHg (60-100); SAMPLE BLOOD; THB 15.2 g/dL (11.5-17.4); pH(98.6) 7.38 (7.35-7.45)
[2017-04-20 17:01] LABS: MODALITY ROOM AIR
[2017-04-20 17:03] LABS: MANUAL DIFF NEEDED? NO
[2017-04-20 17:06] LABS: BASO% 0.2 % (0.0-0.8); EOS# 0.14 X1000 (0.0-0.7); EOS% 1.5 % (0.0-10.0); HEMATOCRIT 44.1 % (42.0-52.0); HEMOGLOBIN 14.5 g/dL (14.0-18.0); IMM GRAN# 0.02 X1000 (0.0-0.04); IMM GRAN% 0.2 % (0.0-0.5); LYMPH# 2.56 X1000 (1.2-3.4); LYMPH% 27.1 % (20.5-51.1); MCH 29.7 PG (27-31); MCHC 32.9 g/dL (33-37); MCV 90.4 FL (81-99); MONO# 0.76 X1000 (0.11-0.59); MONO% 8.1 % (1.7-9.3); MPV 10.6 FL (7.4-10.4); NEUT% 62.9 % (42.2-75.2); PLT 315 X1000 (130-400); RBC 4.88 XMIL (4.7-6.1)
[2017-04-20 17:30] LABS: AGAP 15; ALBUMIN 4.2 g/dL (3.5-5.0); ALKALINE PHOSPHATASE 153 U/L (32-122); BUN 14 mg/dL (8-22); CALCIUM 9.4 mg/dL (8.8-10.2); CHLORIDE 95 mmol/L (98-107); CK PROFILE 44 U/L (24-204); COSMO 280; GOT 25 U/L (10-34); GPT 30 U/L (10-44); MAGNESIUM 1.5 mg/dL (1.5-2.7); POTASSIUM 4.2 mmol/L (3.5-5.1); SODIUM 134 mmol/L (136-145); TCO2 24 mmol/L (25-35); TOTAL BILIRUBIN 0.28 mg/dL (0.20-1.00); TOTAL PROTEIN 8.2 g/dL (6.3-8.3)
[2017-04-20] MEDS ORDERED: ROCEPHIN 1 GM/NS 1 GM/50 ML IVPB IV SCH (17:30)
--- NOTE | 2017-04-20 17:54 | HISTORY AND PHYSICAL ---
CHIEF COMPLAINT: Right-sided headache. HISTORY OF PRESENT ILLNESS: A 47-year-old, white gentleman complaining of headaches going on since last Thursday. It was a mild headache but getting worse. The headache is persistent, moderate to severe in intensity. The patient did have some blurred vision, pressure on the right maxillary sinuses, complaining of nausea. The patient did take some Tylenol without significant relief. The patient claims his blood pressure was staying high. The patient had an episode in the past with a similar type of headache where he lost his memory that required he go for rehabilitation. Patient was concerned. He came in for evaluation and I decided to admit the patient for observation. The patient denied any mental confusion. No neck stiffness. The patient did have malaise. No high-grade fever. He did have some chills. No sinus drainage. No history of head injury. Headache at times is throbbing in nature. No earache. No sore throat. In my office his O2 saturation was low. Patient was tachycardic which could be due to the pain. No typical chest pain, palpitations, orthopnea or PND. Patient does have a history of weight gain. He does have polyuria and polydipsia. No heat or cold intolerance. No diarrhea, blood or mucus in the stool. The patient recently was found to have a ventral hernia. Mild cough. No expectoration or hemoptysis. No dysphagia or odynophagia. No focal weakness. The patient was complaining of weakness all over. ALLERGIES: Iodinated contrast both oral and IV. HOME MEDICATIONS: Cozaar, Prilosec. The patient does not have an updated list. He is going to bring it soon. PAST MEDICAL HISTORY: Patient has only 1 kidney. He had a nephrectomy on the other side, NIDDM, hypertension, morbid obesity, sleep apnea, bipolar disorder, gastritis and reflux disease, hernia, hyperlipidemia. PERSONAL HISTORY: Single. Nonsmoker. Denied alcohol or substance abuse. Patient and mother lives in the same house. REVIEW OF SYSTEMS: As per HPI. Otherwise unobtainable. FAMILY HISTORY: Significant for mother with COPD, hypertension, NIDDM, breast cancer. PAST SURGICAL HISTORY: Patient had cholecystectomy and left nephrectomy. PHYSICAL EXAMINATION: GENERAL: Middle-aged white gentleman, in mild distress. VITAL SIGNS: Blood pressure 130/80, pulse 123, respirations 20, temperature 98.7 degrees. SKIN: Normal turgor. No rash or petechiae. HEENT: Head atraumatic, normocephalic. [place] conjunctivae. Anicteric sclerae. Extraocular muscle movements normal. Fundus cannot be penetrated. Good oral hygiene. No tonsillopharyngeal congestion or exudate. Ears and nose benign. NECK: Supple. No JVD, thyromegaly or lymphadenopathy. CHEST: Bilateral good air entry present. Bibasilar crepitations. No rales. CARDIOVASCULAR: S1 and S2 heard. No gallop or thrill. ABDOMEN: Soft, globular. Bowel sounds present. Patient does have a ventral hernia most likely incisional. EXTREMITIES: No cyanosis or clubbing. No acute DVT. CENTRAL NERVOUS SYSTEM: Alert, awake. Able to move all 4 limbs. Patient does have tenderness on right maxillary sinus. No neck stiffness. No signs of meningeal irritation. CONSIDERATION: 1. Headache moderate to severe with some blurry vision. 2. Tachycardia. The patient did have a low O2 saturation in my office. I decided to admit the patient for observation. 3. Morbid obesity. 4. Hypertension. 5. Ventral hernia. 6. Diabetes mellitus. 7. Gastritis and reflux disease. PLAN: 1. Admit patient. Monitor Accu-Chek, oxygen, telemetry monitoring. Appropriate workup including CT scan of the sinuses and brain, neurology checks, telemetry monitoring. We started patient on beta-charlee. Overall plan discussed at length with the patient. We will treat his headaches symptomatically. 2. Lab Data: Hemoglobin 14.5, hematocrit 44.1, WBC count 9.44, platelet count 315. Blood gas: pH 7.38, pCO2 41, PO2 was 79. This was done on room air. I am going to get blood culture done. 3. Overall plan discussed at length with the patient and he is in agreement. cc: Polo Lindsey MD
[2017-04-20 18:10] LABS: SED RATE 26 mm/hr (0-15)
--- NOTE | 2017-04-20 18:36 | Diag Imaging Result Doc PS360 ---
HEAD W/O CONTRAST - 04/20/2017 INDICATION: headache TECHNIQUE: A CT dose reduction protocol was used. COMPARISON: None FINDINGS: The ventricles and sulci are normal in size and contour. No intracranial mass or hemorrhage. The skull is intact. The sinuses mastoids and middle ears are clear. IMPRESSION: Negative exam. Electronically signed by Kip Freeman 04/20/2017 6:33 PM
--- NOTE | 2017-04-20 18:43 | Diag Imaging Result Doc PS360 ---
PARANASAL SINUSES - 04/20/2017 INDICATION: headache TECHNIQUE: A CT dose reduction protocol was used. COMPARISON: None FINDINGS: The paranasal sinuses are normally developed and clear. Mastoid air cells are clear as well. IMPRESSION: Negative exam. Electronically signed by Kip Freeman 04/20/2017 6:41 PM
[2017-04-20] MEDS: NS + KCL 20 MEQ 1,000 ML IV SCH (18:48)
[2017-04-20] MEDS: NORCO-7.5 PO PRN (18:50)
[2017-04-20] MEDS: LOPRESSOR PO SCH ×2 (18:51→20:15)
--- NOTE | 2017-04-20 18:54 | Diag Imaging Result Doc PS360 ---
CHEST-2 VIEWS - 04/20/2017 INDICATION: headache TECHNIQUE: COMPARISON: 11/06/2016 FINDINGS: The lungs are normally expanded and clear. Heart size and mediastinal contours are normal. No pneumothorax or pleural effusion. IMPRESSION: Negative exam. Electronically signed by Kip Freeman 04/20/2017 6:51 PM
[2017-04-20] MEDS: HUMALOG SUBQ SCH (21:04)
[2017-04-21] MEDS: NORCO-7.5 PO PRN (00:53)
--- NOTE | 2017-04-21 05:38 | EKG Report ---
Test Performed on : 04/20/2017 6:13:46 PM Test Reason : headache Blood Pressure : / mmHG Vent. Rate : 117 BPM Atrial Rate : 117 BPM P-R Int : 148 ms QRS Dur : 084 ms QT Int : 322 ms P-R-T Axes : 054 023 042 degrees QTc Int : 449 ms Sinus tachycardia. Otherwise normal ECG When compared with ECG of 05-NOV-2016 12:27, No significant change was found Confirmed by Wade Ravi DO ([id number]) on 04/25/2017 3:11:35 PM
[2017-04-21] MEDS: HUMALOG SUBQ SCH (06:03)
[2017-04-21] MEDS: NS + KCL 20 MEQ 1,000 ML IV SCH (06:03)
--- NOTE | 2017-04-21 07:03 | PROGRESS NOTE ---
DATE: 04/21/2017 SUBJECTIVE: Mr. Dimas is feeling better. His headache is less. No nausea or vomiting. The patient still has some blurred vision. No chest pain. No neck stiffness. CT scan of the brain and sinuses reviewed. Sedimentation rate was normal. Lab data noted. OBJECTIVE: Vital Signs: Reviewed. Heart rate improved, blood pressure was satisfactory. Neck: Supple. No JVD. Lungs: Bilateral good air entry present. CVS: S1 and S2 heard. Abdomen: Soft, nontender. Bowel sounds present. The patient does have ventral hernia. PANTOGRAPH ENGRAVER: Alert, awake, able to move all 4 limbs. LABORATORY DATA: Sedimentation rate was 26. Blood gas results reviewed. Blood culture results are pending. ASSESSMENT AND PLAN: Overall, the patient is doing better. I am planning to discharge the patient home today to see arson investigator or inspector dials as soon as possible to make sure no eye problem causing headache. I am going to start him on small dose of beta charlee. Advised him to continue home medicine. I gave him antibiotics, [place] for pain, Toprol-XL. Follow up with me in a week. In case of more distress, call us back or go to emergency room. Advised to monitor blood pressure, Accu-Chek at home. Continue home medicine. Continue followup with psychiatrist as scheduled. In case of more problems, call us back or go to emergency room. cc: Polo Lindsey MD
[2017-04-21] MEDS ORDERED: LANTUS SUBQ ONE (07:30)
[2017-04-21 07:38] VITALS: BP 136/97
[2017-04-21] MEDS ORDERED: INSULIN PEN NEEDLES ONE (08:35)
[2017-04-21] MEDS ORDERED: TOPROL XL PO SCH ×2 (09:00)
== END 2017-04-21 10:18 | disposition home or self-care (01) ==
LOC: DIRADM → 3N 16:07
PROVIDERS: ADMIT Internal Medicine; ATTEND Internal Medicine

== ENCOUNTER 2017-05-26 16:06 | Inpatient (IN) ==
[2017-05-26] MEDS ORDERED: DILAUDID IV PRN (17:34)
--- NOTE | 2017-05-26 17:45 | Diag Imaging Result Doc PS360 ---
EXAM: CHEST-2 VIEWS HISTORY: headache TECHNIQUE: Two views COMPARISON: 04/20/2017 FINDINGS: The lungs are well expanded. The heart is not enlarged. The vessels are not distended. There are no infiltrates. No pleural effusions. IMPRESSION: No acute abnormality. Electronically signed by Selvin Manuel 05/26/2017 5:43 PM
--- NOTE | 2017-05-26 18:18 | Diag Imaging Result Doc PS360 ---
EXAM: CT HEAD W/O CONTRAST HISTORY: Headache TECHNIQUE: CT brain without. Dose reduction protocol. COMPARISON: 04/20/2017 FINDINGS: No parenchymal hemorrhage. No epidural or subdural hematoma. No subarachnoid hemorrhage. No mass identified on this noncontrasted exam. No hydrocephalus. Questionable minimal microvascular ischemic changes. No sinus opacification. IMPRESSION: No hemorrhage. Negative brain CT without contrast. If clinical suspicion persists an MRI is suggested. Electronically signed by Selvin Manuel 05/26/2017 6:16 PM
[2017-05-26] MEDS: DILAUDID IV PRN ×2 (18:52→22:06)
[2017-05-26] MEDS: HUMALOG SUBQ SCH ×2 (18:53→21:01)
[2017-05-26] MEDS: ZOFRAN IV PRN (18:53)
[2017-05-26] MEDS ORDERED: TOPROL XL PO ONE (19:11)
[2017-05-26 19:22] LABS: MANUAL DIFF NEEDED? NO
[2017-05-26 19:24] LABS: BASO% 0.3 % (0.0-0.8); EOS# 0.07 X1000 (0.0-0.7); EOS% 0.6 % (0.0-10.0); HEMATOCRIT 45.2 % (42.0-52.0); HEMOGLOBIN 15.1 g/dL (14.0-18.0); IMM GRAN# 0.04 X1000 (0.0-0.04); IMM GRAN% 0.4 % (0.0-0.5); LYMPH# 3.29 X1000 (1.2-3.4); LYMPH% 29.5 % (20.5-51.1); MCH 29.8 PG (27-31); MCHC 33.4 g/dL (33-37); MCV 89.3 FL (81-99); MONO# 0.92 X1000 (0.11-0.59); MONO% 8.2 % (1.7-9.3); MPV 10.1 FL (7.4-10.4); PLT 355 X1000 (130-400); RBC 5.06 XMIL (4.7-6.1)
[2017-05-26 19:40] LABS: ALLEN TEST YES; BE 0.9 mmoll (-3.0-3.0); BLOOD TYPE ARTERIAL; DRAW SITE R RADIAL; METHB 0.4 % (0.0-1.5); O2(CT) 20.2 mL/dL (15.0-23.0); PCO2(98.6) 45 mmHg (35-45); PO2(98.6) 72 mmHg (60-100); SAMPLE BLOOD; SAO2 94.2 % (95.0-100.0); THB 15.4 g/dL (11.5-17.4); pH(98.6) 7.38 (7.35-7.45)
[2017-05-26 19:41] LABS: MODALITY ROOM AIR
[2017-05-26 19:49] LABS: ALBUMIN 3.9 g/dL (3.5-5.0); CALCIUM 9.5 mg/dL (8.8-10.2); POTASSIUM 4.4 mmol/L (3.5-5.1); TOTAL BILIRUBIN 0.26 mg/dL (0.20-1.00); TOTAL PROTEIN 7.7 g/dL (6.3-8.3)
[2017-05-26 20:24] LABS: SED RATE 20 mm/hr (0-15)
[2017-05-26] MEDS: ABILIFY PO SCH (20:59)
[2017-05-26] MEDS: NS + KCL 20 MEQ 1,000 ML IV SCH (20:59)
[2017-05-26] MEDS: SODIUM CHLORIDE 0.9% INJ SCH (21:00)
[2017-05-26] MEDS: KLONOPIN PO SCH (21:00)
[2017-05-26] MEDS: PROTONIX IV SCH (21:00)
--- NOTE | 2017-05-26 21:21 | HISTORY AND PHYSICAL ---
CHIEF COMPLAINT: Headache, tachycardia. HISTORY: Mr. Dimas is a 47-year-old, white gentleman, known case of hypertension, diabetes mellitus, and mood disorder. The patient has only 1 kidney. The patient went for preoperative evaluation for his hernia surgery. Patient was tachycardic, his heart rate was around 145. They called dry can tender for evaluation, but the patient came to my office for evaluation. The patient claims he does have a headache for last 3-4 days. The headache is mainly on the right mosque, moderate in intensity. The headache is off and on. At times, blurred vision. No neck stiffness. Occasional mild nausea. No vomiting. He denied any soreness on the mosque. No history of fall or head injury. I evaluated the patient a few days ago in my office. I did entertain possibility of temporal arteritis. I did a sedimentation rate and it was normal 14. The patient denied any blurred vision. No jaw claudication. The patient claimed he was not able to sleep well last few nights. He was taking all his medications regularly. The patient was restless. I did the EKG in my office and it was sinus tachycardia. No typical chest pain. The patient did have palpitation. The patient was anxious and nervous. Because of his headache, tachycardia and weakness, I decided to admit the patient for further care. The patient does have diabetes mellitus on insulin. He denied any major hypoglycemic episode. No history suggestive of leg swelling, DVT or pulmonary embolism. The patient claims his depression is doing better. No unusual cough or expectoration. No further history available at this time. ALLERGIES: No known drug allergy. HOME MEDICATION: Includes Abilify, Klonopin, Depakote, Cymbalta, Cozaar, metformin. The patient was on beta-charlee. PERSONAL HISTORY: Single. Nonsmoker. Denied alcohol or substance abuse. PAST MEDICAL HISTORY: Hypertension, hyperlipidemia, obesity, patient has only one functioning kidney, other kidney was removed, mood disorder, diabetes mellitus, hypertension, gastritis and reflux disease, history of kidney stone. The patient had cholecystectomy done. FAMILY HISTORY: Significant for mother with hypertension, hyperlipidemia, and mood disorder. Grandmother with seizure, hypercalcemia and hypertension. PHYSICAL EXAMINATION: GENERAL: Middle-aged white gentleman, morbidly obese in mild distress. VITAL SIGNS: On admission blood pressure 153/98, pulse 133, respirations 20, temperature 98.4 degrees. SKIN: Normal turgor. No rash or petechiae. HEENT: Head atraumatic, normocephalic. [place] conjunctivae. Anicteric sclerae. Extraocular muscle movement normal. Fundus cannot be penetrated. Good oral hygiene. No tonsillopharyngeal congestion or exudate. Ears and nose benign. NECK: Supple. No JVD, thyromegaly or lymphadenopathy. CHEST: Bilateral good air entry present. No rales or rhonchi. CARDIOVASCULAR: S1 and S2 heard. No gallop or thrill. Tachycardia. ABDOMEN: Soft, globular. Bowel sounds present. Patient does have ventral hernia. EXTREMITIES: No cyanosis or clubbing. No acute DVT. SUPERVISING APPRAISER: Alert, awake. Answering questions fairly well. Able to move all 4 limbs. LABORATORY DATA: WBC count 11.16, hemoglobin 15.1, hematocrit 45.2, platelet count 355. Sedimentation rate is pending. D-dimer was 0.71. Blood gas pH 7.38, pCO2 45, PO2 was 72, O2 saturation on room air was 94.2. Electrolytes were fairly benign. Sodium 133, potassium 4.4, creatinine was 1.4, blood sugar 209. Cardiac isoenzymes were negative. CT scan of the head did not show any acute changes. It was negative. Patient had a chest x-ray done and it was benign. ASSESSMENT: 1. Headache. 2. Tachycardia. 3. Diabetes mellitus. 4. Hypertension. 5. Morbid obesity. 6. Ventral hernia. 7. Mood disorder. PLAN: Admit the patient. Telemetry monitoring. Close observation. Check appropriate labs. Will do neurology consult. Overall plan discussed at length with the patient and he is in agreement. We will do GI and DVT prophylaxis. Cardiac isoenzymes were negative. Started patient on beta-charlee. Continue his antidepressant and antipsychotic medication. cc: Polo Lindsey MD
[2017-05-26] MEDS: TOPROL XL PO SCH (22:05)
[2017-05-26] MEDS: DEPAKOTE ER PO SCH (23:57)
[2017-05-27] MEDS: DILAUDID IV PRN ×5 (04:23→22:28)
[2017-05-27] MEDS: ZOFRAN IV PRN (04:24)
[2017-05-27] MEDS: HUMALOG SUBQ SCH ×4 (06:47→20:18)
[2017-05-27 07:10] LABS: MANUAL DIFF NEEDED? NO
[2017-05-27 07:15] LABS: BASO% 0.3 % (0.0-0.8); EOS% 2.2 % (0.0-10.0); HEMATOCRIT 43.6 % (42.0-52.0); HEMOGLOBIN 14.2 g/dL (14.0-18.0); IMM GRAN# 0.02 X1000 (0.0-0.04); IMM GRAN% 0.2 % (0.0-0.5); LYMPH% 37.1 % (20.5-51.1); MCHC 32.6 g/dL (33-37); MCV 92.2 FL (81-99); MONO# 0.73 X1000 (0.11-0.59); MONO% 8.2 % (1.7-9.3); MPV 10.2 FL (7.4-10.4); PLT 309 X1000 (130-400); RBC 4.73 XMIL (4.7-6.1)
--- NOTE | 2017-05-27 07:26 | PROGRESS NOTE ---
DATE: 05/27/2017 SUBJECTIVE: Mr. Dimas is doing fair. Still complaining of headache which intensity he graded as 7. At times, the headache is diffuse. Patient claims when he has a severe headache, he does have blurred vision. Sometimes headache is right temporal. He denied any jaw claudication. No diplopia. No high-grade fever or chills. His sedimentation rate that I would rechecked here was 20. No nausea or vomiting. The patient was able to rest last night. Denied any dysuria or hematuria. No high-grade fever or chills. No major hypoglycemic episode. His tachycardia seems to be improving. PHYSICAL EXAMINATION: Vital Signs: Vital signs noted. Neck: Supple. No JVD. Lungs: Bilateral good air entry present. CVS: S1 and S2 heard. Abdomen: Soft, globular. Bowel sounds present. GREASE REMOVER: Alert, awake. Able to move all 4 limbs. The patient did have vague tenderness, right zoroastrianism. CONSIDERATION: 1. Headache. I did neurology consult. Patient may need MRI and MRA of the brain for further evaluation. I am not 100% convinced about temporal arteritis. Going to do rheumatology consult with Dr. Pollard. 2. Tachycardia is improving. I am going to repeat TSH and free T4. 3. Diabetes mellitus. 4. Mood disorder. I am going to hold metformin at this time. If the patient needs contrast, he has only 1 kidney to protect his kidney. 5. Gastritis and reflux disease. The patient is on Protonix. PLAN: Overall plan discussed at length with the patient. He is in agreement. cc: Polo Lindsey MD
[2017-05-27 07:27] LABS: HEMOGLOBIN A1C 8.1 % (4.8-6.0)
[2017-05-27 07:48] LABS: AGAP 14; ALBUMIN 3.7 g/dL (3.5-5.0); ALKALINE PHOSPHATASE 106 U/L (32-122); BUN 22 mg/dL (8-22); CALCIUM 9.4 mg/dL (8.8-10.2); CHLORIDE 97 mmol/L (98-107); COSMO 284; GOT 28 U/L (10-34); GPT 30 U/L (10-44); POTASSIUM 4.6 mmol/L (3.5-5.1); SODIUM 138 mmol/L (136-145); TCO2 27 mmol/L (25-35); TOTAL BILIRUBIN 0.26 mg/dL (0.20-1.00); TOTAL PROTEIN 6.8 g/dL (6.3-8.3)
[2017-05-27 07:58] LABS: FREE T4 1.15 ng/dL (0.93-1.70)
[2017-05-27] MEDS ORDERED: GLUCOPHAGE XR PO SCH (08:00)
[2017-05-27] MEDS: PRILOSEC PO SCH (09:34)
[2017-05-27] MEDS: COZAAR PO SCH (09:34)
[2017-05-27] MEDS: CYMBALTA PO SCH (09:35)
[2017-05-27] MEDS: TOPROL XL PO SCH ×2 (09:35→20:18)
[2017-05-27] MEDS: KLONOPIN PO SCH ×2 (09:35→20:19)
[2017-05-27] MEDS: LOVENOX SUBQ SCH (09:35)
[2017-05-27 10:21] LABS: URINE MICRO REVIEW NEEDED? NO; URINE SOURCE CLEAN CATCH
[2017-05-27 10:30] LABS: BILIRUBIN URINE NEGATIVE (NEGATIVE); BLOOD URINE NEGATIVE (NEGATIVE); COLOR YELLOW; GLUCOSE URINE NEGATIVE (NEGATIVE); LEUKOCYTES URINE NEGATIVE (NEGATIVE); NITRITE URINE NEGATIVE (NEGATIVE); PH URINE 5.5; PROTEIN URINE TRACE mg/dL (NEGATIVE); SP GRAVITY URINE 1.019; TURBIDITY URINE CLEAR (CLEAR); UROBILINOGEN URINE NORMAL (NORMAL)
[2017-05-27 10:31] LABS: UR EPITHELIAL CELLS <10 /HPF (<10); URINE BACTERIA NEGATIVE /HPF; URINE RBC <10 /HPF (<10); URINE WBC <10 /HPF (<10)
[2017-05-27] MEDS ORDERED: IMITREX PO ONE (11:14)
[2017-05-27] MEDS ORDERED: PHENERGAN PO ONE (11:16)
[2017-05-27] MEDS: NS + KCL 20 MEQ 1,000 ML IV SCH (12:03)
[2017-05-27] MEDS ORDERED: GLUCOPHAGE PO SCH (17:00)
[2017-05-27] MEDS: DEPAKOTE ER PO SCH (20:18)
[2017-05-27] MEDS: PROTONIX IV SCH (20:19)
[2017-05-27] MEDS: SODIUM CHLORIDE 0.9% INJ SCH (20:19)
[2017-05-27] MEDS: ABILIFY PO SCH (20:19)
[2017-05-28] MEDS: NS + KCL 20 MEQ 1,000 ML IV SCH ×3 (02:45→08:00)
--- NOTE | 2017-05-28 06:38 | CONSULTATION ---
DATE OF CONSULTATION: 05/27/2017 SUBJECTIVE: Mr. Dimas is 47 years old and he has trouble with headache. He reports some problems with headache beginning after gallbladder surgery about 3 months ago. Headache became more intense about 3 weeks ago, and even more intense in the last 4 days. He reports trouble sleeping in the last 4 days because of headache. Headache is right temporal pounding and throbbing, with pain traveling toward the jaw. He reports soreness in the right side of the roof of the mouth, giving him some trouble with chewing. There has not been slurred speech or trouble swallowing. He has not noticed any change in facial appearance. There has never been ptosis. He has not had asymmetric lacrimation or rhinorrhea. He has not noticed any change in taste or hearing. He has not had any weakness or numbness below the neck. The pain fluctuates, generally less intense during the daytime hours and more intense overnight. Pain seems worse when he reclines, and temporarily less when he stands and walks. He has tried acetaminophen and hydrocodone/acetaminophen, several doses, without benefit. He has not been taking analgesics daily. He has had some blurred vision, nausea, photophobia, but no vomiting. He reports blood pressure 150s/100s at home, heart rate 130s to 140s at home. Caffeine intake is 2 diet Mountain Dew most days, and that has been stable. He has occasional tea. PAST HISTORY: Negative for stroke, seizure, serious head injury, other neurologic event. He has history of occasional dull posterior headache once every few months, usually lasting only part of the day and controlled with a single dose of acetaminophen. He reports an intense headache lasting about a day 8 years ago associated with amnesia, and the amnesia resolved over about a year. FAMILY HISTORY: Negative for headache. WORKUP: Includes noncontrast CT of the head yesterday showing nothing remarkable. Labs showed blood sugar around 200. Sodium was 133. Nothing else remarkable on the chemistry profile. Sedimentation rate was 14 as an outpatient recently, and 20 on admission. OBJECTIVE: Vital signs: Here, heart rate was reported 140s to 80s. He has been afebrile. Systolic blood pressures have ranged from 150s on presentation to 100 to 120s recently. general: On exam, Mr. Dimas is awake, alert, attentive, appropriate, oriented. Speech is not dysarthric. Language function is intact on bedside testing. Memory is good. Head and neck: Unremarkable. There is no meningismus. There is no superficial temporal artery tenderness. TM joints are unremarkable on my exam. Oropharynx is unremarkable. neurologic: Visual powell are full. Pupils react to light. There is no ptosis. Facial motility is normal and symmetric. Facial sensation is subjectively diminished around the right evangelical, forehead, parietal scalp. This is somewhat nonreproducible on repeat testing. Gag is intact. Tongue is midline. Hearing is good. Shoulder shrug is equal. Strength is normal in the arms and legs. He did well on [id number] testing bilaterally. Sensation is intact to pinprick testing over the limbs. Proprioception is good. I did not test his gait. IMPRESSION: Unilateral right-sided headache present for a few weeks, more intense in recent days, but no definite objective neurologic findings (right sided face and scalp sensory findings are subjective) and no clinical evidence of increased intracranial pressure. We discussed possibilities, including atypical cluster, atypical facial pain, migraine, headache related to elevated blood pressure, other unusual headache syndromes including hemicrania. Negative CT is reassuring, but I think we should consider going head with brain MRI. I suggested that to Mr. Dimas, but he believes he would not be able to tolerate the scanner. Therefore, since he appears clinically stable, we will start with treating headache. I think a triptan would make sense. I have ordered sumatriptan with promethazine, and further plans will depend on his clinical course. For question of hemicrania, we might consider indomethacin trial. If he does not improve, I think MRI will become more necessary. Thanks for asking me to see Mr. Dimas. cc: MD Polo Ramon III, MD MTDD
[2017-05-28] MEDS: HUMALOG SUBQ SCH ×4 (07:30→20:40)
--- NOTE | 2017-05-28 08:53 | PROGRESS NOTE ---
DATE: 05/28/2017 SUBJECTIVE: Mr. Dimas is doing fair. He is still complaining of headache. No nausea or vomiting. No high-grade fever or chills. He has no focal numbness, tingling, weakness. The patient was evaluated by a neurologist and also molecular technologist. I did discuss his presentation with neurologist. OBJECTIVE: Vital Signs: His vital signs noted. Neck: Supple. No jugular venous distention. Lungs: Bilateral good air entry present. Cardiovascular: S1 and S2 heard. Abdomen: Soft, globular. Bowel sounds present. MASH GRINDER: Alert, awake, able to move all 4 limbs. LAB DATA: Done yesterday reviewed. Renal function was satisfactory. CONSIDERATION: Headache, etiology unclear. We did try a Triptan without significant relief. We are going to try MRI of the brain, with and without contrast. Patient agreed to try. The patient claims he is claustrophobic but he is in agreement to try. His other problem includes mood disorder, diabetes mellitus, hypertension. Tachycardia improved. Labs and medication noted. Overall plan discussed with the patient. He is in agreement. cc: Polo Lindsey MD
[2017-05-28] MEDS: TOPROL XL PO SCH ×2 (08:56→20:38)
[2017-05-28] MEDS: PRILOSEC PO SCH (08:56)
[2017-05-28] MEDS: KLONOPIN PO SCH ×2 (08:57→20:39)
[2017-05-28] MEDS: CYMBALTA PO SCH (08:57)
[2017-05-28] MEDS: LOVENOX SUBQ SCH (08:57)
[2017-05-28] MEDS: COZAAR PO SCH (08:57)
[2017-05-28] MEDS: DILAUDID IV PRN ×3 (08:57→20:39)
--- NOTE | 2017-05-28 09:06 | Diag Imaging Result Doc PS360 ---
EXAM: MRI BRAIN W W/O CONTRAST INDICATION: headache COMPARISON: No prior brain MRIs available for comparison. FINDINGS: There is no evidence of acute infarct. There are a few small rounded T2/FLAIR hyperintense foci in the periventricular white matter bilaterally. These are nonspecific. A demyelinating process can cause lesions such as these. They can sometimes be seen transiently in patients with migraines. I suppose early microvascular changes are possible. However, it would be disproportionate to the patient's age unless there is a long-standing history of severe vascular disease. There is no discrete intracranial mass, mass effect, or intracranial hemorrhage. There is no evidence of abnormal intracranial enhancement. The surrounding soft tissues and bony structures are essentially unremarkable. IMPRESSION: Several nonspecific T2/FLAIR hyperintense foci in the periventricular white matter. Please see the above discussion. Electronically signed by Isidro Valiente 05/28/2017 9:03 AM
[2017-05-28] MEDS: LEVEMIR SUBQ SCH (10:40)
[2017-05-28] MEDS: SODIUM CHLORIDE 0.9% INJ SCH (20:38)
[2017-05-28] MEDS: PROTONIX IV SCH (20:38)
[2017-05-28] MEDS: ZOFRAN IV PRN (20:39)
[2017-05-28] MEDS: DEPAKOTE ER PO SCH (20:39)
[2017-05-28] MEDS: ABILIFY PO SCH (20:39)
[2017-05-29] MEDS: NS + KCL 20 MEQ 1,000 ML IV SCH ×3 (01:11→18:18)
[2017-05-29] MEDS: DILAUDID IV PRN ×2 (01:12→06:32)
[2017-05-29] MEDS: HUMALOG SUBQ SCH ×4 (06:31→23:00)
[2017-05-29] MEDS: ZOFRAN IV PRN (06:31)
[2017-05-29] MEDS ORDERED: INSULIN PEN NEEDLES ONE (06:53)
[2017-05-29] MEDS: COZAAR PO SCH (10:50)
[2017-05-29] MEDS: TOPROL XL PO SCH ×2 (10:51→20:01)
[2017-05-29] MEDS: PRILOSEC PO SCH (10:52)
[2017-05-29] MEDS ORDERED: XYLOCAINE 1% ONE ×2 (10:53→10:55)
[2017-05-29] MEDS: LEVEMIR SUBQ SCH (10:54)
[2017-05-29] MEDS: KLONOPIN PO SCH ×2 (10:55→20:01)
[2017-05-29] MEDS ORDERED: MARCAINE 0.5% ONE (10:55)
[2017-05-29] MEDS: CYMBALTA PO SCH (10:56)
[2017-05-29] MEDS: LOVENOX SUBQ SCH (11:09)
[2017-05-29] MEDS ORDERED: ROBINUL ONE (11:09)
[2017-05-29] MEDS ORDERED: XYLOCAINE-MPF 2% ONE (11:09)
[2017-05-29] MEDS ORDERED: DIPRIVAN 1% ONE (11:09)
[2017-05-29] MEDS ORDERED: FENTANYL ONE (11:37)
[2017-05-29] MEDS ORDERED: ZOFRAN ONE (11:40)
[2017-05-29] MEDS ORDERED: NORCO-10 PO PRN (13:16)
--- NOTE | 2017-05-29 13:50 | PROGRESS NOTE ---
DATE: 05/29/2017 SUBJECTIVE: Mr. Dimas is doing fair. The patient still has a headache, occasional nausea. No diplopia. No fever or chills. The patient had an MRI done, which did reveal some white matter changes. No evidence of tumor. Blood sugar results reviewed. The patient is ambulating, tolerating fluid well. The patient is still requiring injectable pain medicine. OBJECTIVE: Vital Signs: His vital signs are noted. Neck: Supple. No JVD, thyromegaly, or lymphadenopathy. Chest: Bilateral good air entry present. Cardiovascular: S1 and S2 heard. Abdomen: Soft, globular. Bowel sounds present. The patient does have a ventral hernia. Central Nervous System: Alert, awake, able to move all 4 limbs. Extremities: No acute DVT. ASSESSMENT AND PLAN: 1. I am going to talk to the surgeon for possible temporal artery biopsy today. If not, then planning to discharge him and get it done as an outpatient, but the patient and family are concerned. 2. Diabetes mellitus. 3. Hypertension. Blood pressure doing better. 4. Tachycardia, stable. 5. Morbid obesity. 6. Mood disorder. OVERALL PLAN: The overall plan was discussed at length with the patient. He is in agreement. Currently, I advised the patient to stay n.p.o. until I discuss with the surgeon. cc: Polo Lindsey MD
[2017-05-29] MEDS: PERIDEX MT SCH (20:01)
[2017-05-29] MEDS: DEPAKOTE ER PO SCH (20:01)
[2017-05-29] MEDS: ABILIFY PO SCH (20:01)
--- NOTE | 2017-05-29 21:45 | OPERATIVE NOTE ---
PROCEDURE DATE: 05/29/2017 PREOP: Chronic right-sided headache. POSTOP: Chronic right-sided headache. PROCEDURE: Right superficial temporal artery biopsy to rule out temporal arteritis. DESCRIPTION OF PROCEDURE: The patient is brought to the operating room. After satisfactory induction of IV and LMA anesthesia he was turned onto his left side. The right side of his head was prepped and draped in the appropriate manner. With Doppler guidance, the STA was marked out. A curvilinear incision was made from anterior to the ear and up and back with dissection of a portion of the superficial temporal artery with several branches. Base branch was ligated with 0 silk. The superior branch was ligated with a 3-0 silk, portion of the artery with several branches was removed with otherwise hemostasis being achieved by electrocautery. Subcu was infiltrated with a combination of Marcaine and Xylocaine and closed with 3-0 Vicryl and the skin itself with 4-0 Vicryl subcuticular. Steri-Strips, Telfa and OpSite were applied. The patient was subsequently turned back onto his back, awakened, and extubated in the operating room and transferred to recovery. cc: MD Polo Mcneil MD
[2017-05-30] MEDS: NS + KCL 20 MEQ 1,000 ML IV SCH ×3 (02:10→06:05)
[2017-05-30 05:29] LABS: MANUAL DIFF NEEDED? NO
[2017-05-30 05:38] LABS: BASO% 0.2 % (0.0-0.8); EOS# 0.12 X1000 (0.0-0.7); EOS% 1.9 % (0.0-10.0); HEMATOCRIT 37.9 % (42.0-52.0); HEMOGLOBIN 12.4 g/dL (14.0-18.0); LYMPH# 2.51 X1000 (1.2-3.4); MCH 30.4 PG (27-31); MCHC 32.7 g/dL (33-37); MCV 92.9 FL (81-99); MONO# 0.52 X1000 (0.11-0.59); MONO% 8.1 % (1.7-9.3); MPV 10.3 FL (7.4-10.4); NEUT% 50.8 % (42.2-75.2); PLT 235 X1000 (130-400); RBC 4.08 XMIL (4.7-6.1)
[2017-05-30 06:00] LABS: AGAP 5; ALBUMIN 3.3 g/dL (3.5-5.0); ALKALINE PHOSPHATASE 104 U/L (32-122); BUN 19 mg/dL (8-22); CALCIUM 8.3 mg/dL (8.8-10.2); CHLORIDE 99 mmol/L (98-107); COSMO 280; GOT 20 U/L (10-34); GPT 28 U/L (10-44); MAGNESIUM 1.7 mg/dL (1.5-2.7); POTASSIUM 4.6 mmol/L (3.5-5.1); SODIUM 138 mmol/L (136-145); TCO2 34 mmol/L (25-35); TOTAL BILIRUBIN 0.15 mg/dL (0.20-1.00); TOTAL PROTEIN 6.6 g/dL (6.3-8.3)
[2017-05-30] MEDS: HUMALOG SUBQ SCH (06:05)
[2017-05-30 07:52] VITALS: BP 123/65
[2017-05-30] MEDS: LOVENOX SUBQ SCH (09:16)
[2017-05-30] MEDS: COZAAR PO SCH (09:16)
[2017-05-30] MEDS: PERIDEX MT SCH (09:16)
[2017-05-30] MEDS: CYMBALTA PO SCH (09:17)
[2017-05-30] MEDS: LEVEMIR SUBQ SCH (09:17)
[2017-05-30] MEDS: KLONOPIN PO SCH (09:17)
[2017-05-30] MEDS: PRILOSEC PO SCH (09:17)
--- NOTE | 2017-05-31 11:59 | DISCHARGE SUMMARY ---
ADMISSION DATE: 05/26/2017 DISCHARGE DATE: 05/30/2017 FINAL DISCHARGE DIAGNOSES: 1. Intractable headache. Differential includes migraine, tension headache possibility of temporal arteritis cannot be ruled out. 2. Diabetes mellitus. 3. Hypertension. 4. Tachycardia. 5. Mood disorder. 6. Morbid obesity. 7. Gastritis and reflux disease. 8. Hyperlipidemia. 9. Patient has only 1 kidney. HISTORY OF PRESENT ILLNESS: Mr. Dimas is a 47-year-old, white gentleman admitted with headache going on for many days. Patient was taking [place] at that time with partial relief. The patient's headache was located to right temporal area. The patient claimed when headache got worse he did have some blurred vision. Also had elevated blood pressure and at time tachycardia. The patient came for his preoperative evaluation for abdominal wall hernia. At that time, the patient was tachycardic. He came to my office. I evaluated him and decided to admit him for further care. HOSPITAL COURSE: I treated patient symptomatically with IV pain medicine, symptomatic care. We hydrated the patient and treated his tachycardia with beta charlee. Neurology consult obtained. Dr. Martinez evaluated the patient. Recommendations reviewed. We did try Imitrex without significant relief. I got rheumatology consult with Dr. Pollard. As patient was not responding, we decided to do temporal artery biopsy. Patient underwent biopsy yesterday, result is pending. The patient has some soreness at the site of surgery. The patient is still complaining of headache. I changed his pain medicine to take by mouth. The patient claims [place] does not help. I am going to try Esgic. Overall patient is doing better. His heart rate is better. Blood pressure is satisfactory. I am going to discharge patient home. I will follow his biopsy result and advised him to have follow up with Dr. Martinez and Dr. Pollard. I also discussed with the patient about habit-forming property of pain medicine and cautioned him for the same. We also discussed currently he is on small dose of insulin but once he goes home and starts eating regular food his sugar may go up and he has to go up on his insulin. PHYSICAL EXAMINATION: Vital Signs: His vital signs noted. Blood pressure 123/65, pulse 89, respirations 16, temperature 98.4 degrees. The patient does have dressed wound on the right temporal area. Neck: Supple. No JVD. Lungs: Bilateral good air entry present. CVS: S1 and S2 heard. Abdomen: Soft, globular. Bowel sounds present. Extremities: No cyanosis, clubbing. No acute DVT. DRILL HAND: Alert, awake able to move all 4 limbs. LABORATORY DATA: Revealed his sedimentation rate was 20, hemoglobin 12.4, hematocrit 37.9. Platelet count 235,000. WBC count 6.43. No external bleeding. Electrolytes were fairly benign. TSH 2.28. Free T4 was 1.15, hemoglobin A1c was 8.1 urinalysis results reviewed, The patient initial CT scan was no hemorrhage. Negative brain CT without contrast. We did MRI of the brain which revealed several nonspecific T2 hyperintense foci in the periventricular white matter. DISCHARGE INSTRUCTIONS: I advised patient to have follow up with Dr. Martinez. Follow up with me in a week's time. Weight reduction. Fall precaution DISPOSITION: Overall discharge condition satisfactory. In case of more distress, call us back or go to emergency room. cc: Polo Lindsey MD
== END 2017-05-30 10:42 | disposition home or self-care (01) ==
LOC: EDIPHOLD 18:10 → 4N 18:52
PROVIDERS: ADMIT Internal Medicine; ATTEND Internal Medicine